=== PATIENT | female | born 1975 | race Two or more races ===

== ENCOUNTER 2020-04-10 11:10 | Outpatient (REF) | payer OTHER, SELFPAY ==
--- NOTE | ~2020-04-10 | XR_ITS ---
EXAMINATION: XR LUMBOSACRAL SPINE WITH OBLIQUES CLINICAL INFORMATION: Unspecified thoracic, thoracolumbar and lumbosacral intervertebral disc disorder COMPARISON: None TECHNIQUE: AP, both oblique, and lateral views of the lumbar spine. Lateral view of the lumbosacral junction. FINDINGS: There is loss of disc height with endplate sclerosis and prominent posterior osteophytosis at L5-S1. Minimal anterior osteophytosis. There is likely bilateral facet arthropathy at L5-S1 as well. Vertebral body heights are maintained. Normal sagittal alignment. Bilateral sacroiliac joint spaces are maintained. XR/XR lumbar spine 4V min IMPRESSION: Degenerative disc disease and facet arthropathy at L5-S1.
[2020-04-10 13:03] LABS: Hematocrit 39.1 % (37-47); Hemoglobin 12.2 g/dl (12.0-16.0); Mean Corpuscular HGB Conc 31.2 g/dl (31.0-35.0); Mean Corpuscular Volume 86.5 fL (80-98); Mean Platelet Volume 11.2 fL (9.4-12.3); Platelet Count 304 X10*3/uL (160-400); Red Blood Count 4.52 X10*6/uL (4.20-5.50); White Blood Count 8.6 X10*3/uL (4.8-10.8)
[2020-04-10 13:10] LABS: Estimated Average Glucose 97 mg/dL
[2020-04-10 13:30] LABS: Alanine Aminotransferase 23 U/L (0-31); Albumin Level 4.3 g/dL (3.5-5.0); Alkaline Phosphatase 65 U/L (39-117); Anion Gap 13 (12-20); Aspartate Amino Transferase 13 U/L (5-31); Bilirubin Total 0.5 mg/dL (0.0-1.0); Blood Urea Nitrogen 11 mg/dL (9-16); Calcium 8.9 mg/dL (8.4-10.2); Carbon Dioxide 26 mmol/L (22-29); Chloride 104 mmol/L (96-108); Cholesterol 191 mg/dL; Estimated Glomerular Filt Rate > 60; Glucose Fasting 96 mg/dL (60-99); HDL Cholesterol 42 mg/dL; LDL Cholesterol Calculated 125 mg/dl; Potassium 4.4 mmol/L (3.3-5.1); Sodium 139 mmol/L (135-145); Total Protein 7.2 g/dL (6.5-8.0); Triglycerides 120 mg/dL
[2020-04-10 13:52] LABS: TSH reflex Free T4 1.18 uIU/mL (0.32-4.0)
== END 2020-04-10 11:11 | disposition home or self-care (01) ==
LOC: HO.LAB 11:10
PROVIDERS: PCP Physician Assistant; Visit Provider Physician Assistant
DX: E78.2 Mixed hyperlipidemia (principal); I10 Essential (primary) hypertension; M51.9 Unspecified thoracic, thoracolumbar and lumbosacral intervertebral disc disorder; J45.30 Mild persistent asthma, uncomplicated; N63.20 Unspecified lump in the left breast, unspecified quadrant; N83.202 Unspecified ovarian cyst, left side; F33.1 Major depressive disorder, recurrent, moderate; Z13.220 Encounter for screening for lipoid disorders
CPT/HCPCS: 36415; 72110; 80053; 80061; 83036; 84443; 85027

== ENCOUNTER 2020-04-17 12:49 | Outpatient (REF) | payer OTHER, SELFPAY ==
--- NOTE | ~2020-04-17 | US_ITS ---
EXAMINATION: US THYROID CLINICAL INFORMATION: Nontoxic single thyroid nodule. COMPARISON: None. TECHNIQUE: Linear transducer echavarria-scale and color Doppler examination with attention to the region of the thyroid. FINDINGS: SIZE: Measurements of the thyroid lobes and nodules are given in sagittal, anteroposterior and transverse dimensions respectively. Right Thyroid Lobe: 4.5 x 1.4 x 1.5 cm, volume 4.9 mL. Parenchyma: The gland echotexture is homogeneous. Thyroid vascularity is normal. Left Thyroid Lobe: 4.3 x 1.4 x 1.5 cm, volume 4.7 mL. Parenchyma: The gland echotexture is homogeneous. Thyroid vascularity is normal. Isthmus: 0.4 cm in maximum AP dimension. Estimated total number of nodules greater than or equal to 1 cm: 0. Greenskeeper Laborer nodules are described as follows: 1. Location: Left mid pole. Size: 0.3 x 0.2 x 0.3 cm, volume 0.01 mL. Nodule characteristics: Composition: Solid (2). Echogenicity: Hyperechoic (1). Shape: Not taller than wide (0). Margins: Smooth (0). Echogenic Foci: None (0). ACR TI-RADS total points: 3 ACR TI-RADS category: 3 NODES: No lymphadenopathy is seen in the tissue surrounding the thyroid gland. US/US thyroid IMPRESSION: Solitary less than 1 cm left midpole nodule, benign. The rest of the thyroid ultrasound is unremarkable. ACR TI-RADS RECOMMENDATION REFERENCE: Ultrasound-guided fine-needle aspiration, followup ultrasound, no further follow up. * TR1 (0 point) and TR 2 (2 points): No FNA or follow up * TR3 (3 points): FNA if more than or equal to 2.5 cm in maximum dimension, followup ultrasound in 1, 3 and 5 years if 1.5 to 2.4 cm in maximum dimension. * TR4 (4-6 points): FNA if more than or equal to 1.5 cm in maximum dimension, followup ultrasound in 1, 2, 3 and 5 years if 1 to 1.4 cm in maximum dimension. * TR5 (more than or equal to 7 points): FNA if more than or equal to 1 cm in maximum dimension, followup ultrasound every year for 5 years if 0.5 to 0.9 cm in maximum dimension. * TR3, TR4 or TR5 nodules that are below the size threshold for follow up receive no follow up.
== END 2020-04-17 12:50 | disposition home or self-care (01) ==
LOC: HO.US 12:49
PROVIDERS: PCP Physician Assistant; Visit Provider Physician Assistant
DX: E04.1 Nontoxic single thyroid nodule (principal)
CPT/HCPCS: 76536

== ENCOUNTER → 2020-04-23 13:25 | Outpatient (BNVA) | payer OTHER, SELFPAY | PROVIDERS: PCP Physician Assistant; Visit Provider Obstetrics & Gynecology ==

== ENCOUNTER 2020-04-26 08:30 | Outpatient (REF) | payer OTHER, SELFPAY ==
--- NOTE | ~2020-04-26 | MM_ITS ---
EXAMINATION: MM DIAGNOSTIC DIGITAL BREAST TOMOSYNTHESIS, BILATERAL Targeted left breast ultrasound CLINICAL INFORMATION: Tender lump upper outer aspect of the left breast The lifetime risk of breast cancer based on the Tyrer-Cuzick Model is 7.6%. COMPARISON: Mammography: None TECHNIQUE: Digital breast tomosynthesis is performed in both the craniocaudal and mediolateral oblique views along with computer-aided detection (CAD). Synthesized 2D images are generated from the tomosynthesis. Targeted left breast ultrasound FINDINGS: The breasts are heterogeneously dense, which may obscure small masses (ACR BI-RADS breast composition Category c). There are no significant masses, abnormal calcifications, or other abnormalities. Targeted left breast ultrasound demonstrates a hypoechoic subcutaneous lesion without distal sound shadowing 1:00 position 4 cm from the nipple. No internal vascularity. No definite pore to skin is identified. The lesion measures approximately 3 x 2 mm in size. Results are discussed with the patient at time of visit. MM/MM tomosynthesis diagnostic BI IMPRESSION: Painful palpable area corresponds to a small 3 x 2 mm subcutaneous cyst. ASSESSMENT: BI-RADS 2: Benign RECOMMENDATION: Routine annual mammography screening due in 12 months. Clinical follow-up of palpable abnormality. This patient's information was entered into a reminder system with a target due date for their next mammogram.
--- NOTE | ~2020-04-26 | US_ITS ---
EXAMINATION: US DIAGNOSTIC ULTRASOUND BREAST, LEFT CLINICAL INFORMATION: Painful lump. COMPARISON: Mammography same day. TECHNIQUE: Ultrasound of the breast is performed with real-time echavarria scale imaging and color Doppler. FINDINGS: Targeted left breast ultrasound demonstrates a hypoechoic subcutaneous lesion without distal sound shadowing 1:00 position 4 cm from the nipple. No internal vascularity. No definite pore to skin is identified. The lesion measures approximately 3 x 2 mm in size. Results are discussed with the patient at time of visit. US/US breast LT limited IMPRESSION: Painful palpable area corresponds to a small 3 x 2 mm subcutaneous cyst. ASSESSMENT: BI-RADS 2: Benign RECOMMENDATION: Routine annual mammography screening due in 12 months. Clinical follow-up of palpable abnormality.
== END 2020-04-26 08:31 | disposition home or self-care (01) ==
LOC: HO.MAMMO 08:30
PROVIDERS: Visit Provider Obstetrics & Gynecology
DX: N60.02 Solitary cyst of left breast (principal); N64.4 Mastodynia; Z79.899 Other long term (current) drug therapy
CPT/HCPCS: 76642; 77062; 77066; 99202

== ENCOUNTER 2020-04-30 08:33 | Outpatient (REF) | payer OTHER, SELFPAY ==
--- NOTE | ~2020-04-30 | US_ITS ---
EXAMINATION: ULTRASOUND PELVIS COMPLETE. CLINICAL INFORMATION: Pelvic and perineal pain. History of hysterectomy. COMPARISON: None. TECHNIQUE: Transabdominal and transvaginal images of the pelvis are performed. FINDINGS: The uterus is surgically absent. Both ovaries are seen transabdominally. Right ovary measures 2.20 x 2.28 x 1.95 cm and volume 5.11 mL. It appears unremarkable. Left ovary measures 2.68 x 1.23 x 2.62 cm and volume 4.52 cm. There is no adnexal mass or free fluid. US/US pelvic complete IMPRESSION: Unremarkable ovaries. Uterus is surgically removed. There is no adnexal mass or free fluid.
--- NOTE | ~2020-04-30 | US_ITS ---
EXAMINATION: ULTRASOUND PELVIS COMPLETE. CLINICAL INFORMATION: Pelvic and perineal pain. History of hysterectomy. COMPARISON: None. TECHNIQUE: Transabdominal and transvaginal images of the pelvis are performed. FINDINGS: The uterus is surgically absent. Both ovaries are seen transabdominally. Right ovary measures 2.20 x 2.28 x 1.95 cm and volume 5.11 mL. It appears unremarkable. Left ovary measures 2.68 x 1.23 x 2.62 cm and volume 4.52 cm. There is no adnexal mass or free fluid. US/US transvaginal IMPRESSION: Unremarkable ovaries. Uterus is surgically removed. There is no adnexal mass or free fluid.
== END 2020-04-30 08:34 | disposition home or self-care (01) ==
LOC: HO.US 08:33
PROVIDERS: Visit Provider Obstetrics & Gynecology
DX: R10.2 Pelvic and perineal pain (principal); Z90.710 Acquired absence of both cervix and uterus
CPT/HCPCS: 76830; 76856

== ENCOUNTER → 2020-05-13 11:32 | Outpatient (BNVA) | payer OTHER, SELFPAY | PROVIDERS: PCP Physician Assistant; Visit Provider Obstetrics & Gynecology | DX: R10.2 Pelvic and perineal pain (principal); N63.20 Unspecified lump in the left breast, unspecified quadrant ==

== ENCOUNTER → 2020-05-14 07:58 | Outpatient (BNVA) | payer OTHER, SELFPAY | PROVIDERS: PCP Physician Assistant; Visit Provider Internal Medicine Endocrinology, Diabetes & Metabolism | DX: E04.1 Nontoxic single thyroid nodule (principal) | CPT/HCPCS: 99202 ==

== ENCOUNTER 2020-05-16 08:01 | Outpatient (REF) | payer OTHER, SELFPAY ==
--- NOTE | ~2020-05-16 | XR_ITS ---
EXAMINATION: XR WRIST, RIGHT CLINICAL INFORMATION: Pain in right wrist COMPARISON: None TECHNIQUE: Four views of the right wrist. FINDINGS: There is no fracture or dislocation. The carpal rows are well aligned. No osseous erosions. Joint spaces are maintained. The soft tissues are unremarkable. XR/XR wrist RT min 3V IMPRESSION: Unremarkable appearance of the right wrist.
[2020-05-16 09:53] LABS: Glucose Urine UA NEG (NEG); Leukocyte Esterase Urine NEG (NEG); Nitrite Urine NEG (NEG); PH 5.5 (5.0-8.0); Specific Gravity - Urine >= 1.030 (1.005-1.025); Urine Blood NEG (NEG); Urine Ketones NEG (NEG); Urine Protein NEG (NEG-TRACE)
[2020-05-16 09:56] LABS: Appearance Urine HAZY; Color Urine YELLOW
[2020-05-16 10:02] LABS: Free T4 (Free Thyroxine) 0.98 ng/dL (0.71-1.85); Thyroid Stimulating Hormone 1.55 uIU/mL (0.32-4.0)
[2020-05-17 07:02] LABS: Thyroglobulin Antibodies <1 IU/mL (< or = 1); Thyroid Peroxidase Antibodies <1 IU/mL (<9)
== END 2020-05-16 08:02 | disposition home or self-care (01) ==
LOC: HO.LAB 08:01
PROVIDERS: Absent Provider Obstetrics & Gynecology; PCP Physician Assistant; Visit Provider Internal Medicine Endocrinology, Diabetes & Metabolism
DX: R10.2 Pelvic and perineal pain (principal); M25.531 Pain in right wrist; E04.1 Nontoxic single thyroid nodule
CPT/HCPCS: 36415; 73110; 81003; 84439; 84443; 86376; 86800

== ENCOUNTER 2020-05-16 08:43 | Outpatient (REF) | payer OTHER, SELFPAY ==
[2020-05-16 12:40] LABS: SARS COV2 PCR INHOUSE NEGATIVE (Negative)
== END 2020-05-16 08:44 | disposition home or self-care (01) ==
LOC: HO.LAB 08:43
PROVIDERS: Visit Provider Internal Medicine
DX: Z20.822 Contact with and (suspected) exposure to COVID-19 (principal)
CPT/HCPCS: C9803; U0003

== ENCOUNTER 2020-06-24 13:56 | Outpatient (REF) | payer OTHER, SELFPAY | END 2020-06-24 13:57 | disposition home or self-care (01) | LOC: HO.LAB 13:56 | PROVIDERS: Visit Provider Internal Medicine | DX: Z20.822 Contact with and (suspected) exposure to COVID-19 (principal) | CPT/HCPCS: C9803; U0003; U0005 ==

== ENCOUNTER 2020-07-12 15:43 | Outpatient (REF) | payer OTHER, SELFPAY ==
--- NOTE | ~2020-07-12 | MR_ITS ---
MR LUMBAR SPINE WITHOUT CONTRAST CLINICAL INFORMATION: Radiculopathy. Suspect L5-S1 disc degeneration. COMPARISON: None available. TECHNIQUE: MRI of the lumbar spine was obtained using routine sequences without contrast. FINDINGS: There are 5 nonrib-bearing lumbar-type vertebral bodies. Lumbar alignment is normal. Vertebral body heights are maintained. There is moderate to severe disc volume loss at L5-S1 and the remaining disc volumes are preserved. Disc desiccation at L5-S1. The remaining discs are well-hydrated. Modic type II endplate signal changes at L5-S1. No bone marrow edema. No acute fractures. Intraosseous hemangioma within the L4 vertebral body. Conus terminates at the L1 level. No significant extraspinal soft tissue findings. The L1-L2, L2-L3, and L3-L4 disc contours are normal. There is no central canal stenosis and there is no foraminal stenosis L4-L5: Small annular disc bulge and mild bilateral facet arthropathy. No central canal stenosis and no significant foraminal stenosis. L5-S1: There is a superiorly migrating right paracentral disc extrusion that mildly indents the ventral thecal sac without resulting in mass effect on the traversing S1 nerve roots. Disc osteophyte and facet arthropathy result in moderate bilateral foraminal stenosis with mild mass effect on the exiting L5 nerve roots bilaterally. MR/MR lumbar spine wo con IMPRESSION: At L5-S1, there is a superiorly migrating right paracentral disc extrusion that mildly indents the ventral thecal sac without resulting in mass effect on the traversing S1 nerve roots. Multifactorial degenerative changes at L5-S1 result in moderate bilateral foraminal stenosis with mild mass effect on the exiting L5 nerve roots bilaterally. Moderate to severe disc volume loss at L5-S1.
== END 2020-07-12 15:44 | disposition home or self-care (01) ==
LOC: HO.MRI 15:43
PROVIDERS: Visit Provider Physical Medicine & Rehabilitation
DX: M54.16 Radiculopathy, lumbar region (principal); M51.37 Other intervertebral disc degeneration, lumbosacral region
CPT/HCPCS: 72148

== ENCOUNTER → 2020-12-04 10:57 | Outpatient (BNVA) | payer OTHER, SELFPAY | PROVIDERS: PCP Nurse Practitioner Family; Visit Provider Orthopaedic Surgery | DX: R20.0 Anesthesia of skin (principal); R20.2 Paresthesia of skin | CPT/HCPCS: 99202 ==

== ENCOUNTER 2021-02-06 08:06 | Outpatient (REF) | payer OTHER, SELFPAY ==
[2021-02-06 09:02] LABS: Estimated Average Glucose 103 mg/dL; Hemoglobin A1c % 5.2 %
[2021-02-06 09:16] LABS: Alanine Aminotransferase 32 U/L (0-31); Alkaline Phosphatase 68 U/L (39-117); Anion Gap 11 (12-20); Aspartate Amino Transferase 14 U/L (5-31); Bilirubin Total 0.7 mg/dL (0.0-1.0); Blood Urea Nitrogen 11 mg/dL (9-16); Calcium 9.6 mg/dL (8.4-10.2); Carbon Dioxide 28 mmol/L (22-29); Chloride 105 mmol/L (96-108); Cholesterol 208 mg/dL; Estimated Glomerular Filt Rate > 60; Glucose Fasting 104 mg/dL (60-99); HDL Cholesterol 44 mg/dL; LDL Cholesterol Calculated 142 mg/dl; Potassium 4.3 mmol/L (3.3-5.1); Sodium 140 mmol/L (135-145); Total Protein 6.8 g/dL (6.5-8.0); Triglycerides 110 mg/dL
[2021-02-06 09:38] LABS: Creatinine Urine 175.83 mg/dL; Microalbum/Creatinine Ratio Ur 3.9 ug/mg cr
== END 2021-02-06 08:07 | disposition home or self-care (01) ==
LOC: HO.LAB 08:06
PROVIDERS: PCP Physician Assistant; Visit Provider Physician Assistant
DX: I10 Essential (primary) hypertension (principal)
CPT/HCPCS: 36415; 80053; 80061; 82043; 83036

== ENCOUNTER 2021-03-10 09:29 | Outpatient (REF) | payer OTHER, SELFPAY ==
--- NOTE | ~2021-03-10 | US_ITS ---
EXAMINATION: US ABDOMEN COMPLETE CLINICAL INFORMATION: Abdominal distention (gaseous). COMPARISON: None. TECHNIQUE: Real-time imaging of the abdominal viscera. FINDINGS: PANCREAS: Normal. ABDOMINAL AORTA: The proximal, mid, and distal segments are normal in caliber. INFERIOR VENA CAVA: Visualized portions are normal. LIVER: The liver is normal in size. The liver contour is normal. There is increased liver echogenicity. No focal hepatic lesion. There is no intrahepatic biliary duct dilatation seen. GALLBLADDER: Gallbladder wall thickness measures 0.2 cm. The gallbladder is physiologically distended without evidence of stones, sludge, polyps, wall thickening or pericholecystic fluid. COMMON BILE DUCT: Normal in caliber measuring 0.4 cm in diameter. RIGHT KIDNEY: No hydronephrosis. However, there is mild pelvic fullness. No renal calculi or focal parenchymal lesions. The kidney measures 11.0 cm in maximum dimension. LEFT KIDNEY: There are calcified echogenic vessels in the upper pole. No hydronephrosis. No renal calculi or focal parenchymal lesions. The kidney measures 10.2 cm in maximum dimension. SPLEEN: Normal. The spleen measures 8.4 cm in maximum dimension. FREE FLUID: None. US/US abdomen complete IMPRESSION: Hepatic steatosis without focal lesion. No gallstones or wall thickening. Mild pelvic fullness right kidney.
--- NOTE | ~2021-03-10 | XR_ITS ---
EXAMINATION: XR CHEST CLINICAL INFORMATION: Mild persistent asthma. COMPARISON: None TECHNIQUE: 2 views of the chest were obtained. FINDINGS: The lungs are clear. There are no pleural effusions. The heart and mediastinal structures are unremarkable. XR/XR chest 2V IMPRESSION: No acute cardiopulmonary process.
== END 2021-03-10 09:30 | disposition home or self-care (01) ==
LOC: HO.US 09:29
PROVIDERS: Visit Provider Physician Assistant
DX: R14.0 Abdominal distension (gaseous) (principal); J45.30 Mild persistent asthma, uncomplicated
CPT/HCPCS: 71046; 76700

== ENCOUNTER 2021-05-07 10:51 | Outpatient (REF) | payer OTHER, SELFPAY ==
--- NOTE | ~2021-05-07 | US_ITS ---
EXAMINATION: US THYROID CLINICAL INFORMATION: Goiter. COMPARISON: US thyroid 04/17/2020. TECHNIQUE: Linear transducer grayscale and color Doppler examination with attention to the region of the thyroid. FINDINGS: SIZE: Measurements of the thyroid lobes and nodules are given in sagittal, anteroposterior and transverse dimensions respectively. Right Thyroid Lobe: 4.4 x 1.4 x 1.6 cm, volume 5.2 mL. Previously 4.5 x 1.4 x 1.5 cm, volume 4.9 mL. Parenchyma: The gland echotexture is homogeneous. Thyroid vascularity is normal. Left Thyroid Lobe: 4.2 x 1.2 x 1.5 cm, volume 3.9 mL. Previously 4.3 x 1.4 x 1.5 cm, volume 4.7 mL. Parenchyma: The gland echotexture is homogeneous. Thyroid vascularity is normal. Isthmus: 0.3 cm in maximum AP dimension. Previously 0.4 cm. Estimated total number of nodules greater than or equal to 1 cm: 0. Direct Service Worker nodules are described as follows: 1. Location: Left mid. Size: 0.35 x 0.16 x 0.27 cm, volume 0.01 mL. Previously: 0.3 x 0.2 x 0.3 cm, volume 0.01 mL. Nodule characteristics: Composition: Solid (2). Echogenicity: Hyperechoic (1). Shape: Not taller than wide (0). Margins: Smooth (0). Echogenic Foci: None (0). ACR TI-RADS total points: 3 Previous: 3 ACR TI-RADS category: 3 Previous: 3 Significant change in size (>/= 20% in 2 dimensions and minimal increase of 2 mm or 50% or greater increase in volume): Change in features: Change in ACR TI-RADS risk category: NODES: No lymphadenopathy is seen in the tissue surrounding the thyroid gland. US/US thyroid IMPRESSION: Normal size thyroid gland. Stable small solitary left thyroid nodule. ACR TI-RADS RECOMMENDATION REFERENCE: Ultrasound-guided fine-needle aspiration, followup ultrasound, no further follow up. * TR1 (0 point) and TR 2 (2 points): No FNA or follow up * TR3 (3 points): FNA if more than or equal to 2.5 cm in maximum dimension, followup ultrasound in 1, 3 and 5 years if 1.5 to 2.4 cm in maximum dimension. * TR4 (4-6 points): FNA if more than or equal to 1.5 cm in maximum dimension, followup ultrasound in 1, 2, 3 and 5 years if 1 to 1.4 cm in maximum dimension. * TR5 (more than or equal to 7 points): FNA if more than or equal to 1 cm in maximum dimension, followup ultrasound every year for 5 years if 0.5 to 0.9 cm in maximum dimension. * TR3, TR4 or TR5 nodules that are below the size threshold for follow up receive no follow up.
== END 2021-05-07 10:52 | disposition home or self-care (01) ==
LOC: HO.US 10:51
PROVIDERS: Visit Provider Internal Medicine Endocrinology, Diabetes & Metabolism
DX: E04.2 Nontoxic multinodular goiter (principal)
CPT/HCPCS: 76536

== ENCOUNTER 2021-05-16 08:19 | Outpatient (REF) | payer OTHER, SELFPAY ==
--- NOTE | 2021-05-16 08:25 | ECG_ITS ---
Test Reason : SOB Blood Pressure : / mmHG Vent. Rate : 070 BPM Atrial Rate : 070 BPM P-R Int : 140 ms QRS Dur : 086 ms QT Int : 388 ms P-R-T Axes : 034 034 028 degrees QTc Int : 419 ms Normal sinus rhythm Normal ECG No previous ECGs available Referred By: Reynaldo Santana Electronically Signed By:ALPA PAN
[2021-05-16 09:16] LABS: Hematocrit 39.8 % (37.0-47.0); Mean Corpuscular HGB Conc 30.2 g/dl (31.0-35.0); Mean Corpuscular Hemoglobin 26.4 pg (27.0-33.0); Mean Corpuscular Volume 87.7 fL (80.0-98.0); Mean Platelet Volume 10.8 fL (9.4-12.3); Platelet Count 318 X10*3/uL (160-400); Red Blood Count 4.54 X10*6/uL (4.20-5.50); White Blood Count 9.2 X10*3/uL (4.8-10.8)
[2021-05-16 09:32] LABS: Estimated Average Glucose 97 mg/dL
[2021-05-16 09:52] LABS: Anion Gap 9 (12-20); Blood Urea Nitrogen 11 mg/dL (9-16); Calcium 9.3 mg/dL (8.4-10.2); Carbon Dioxide 29 mmol/L (22-29); Chloride 106 mmol/L (96-108); Cholesterol 202 mg/dL; Estimated Glomerular Filt Rate > 60; Glucose Random 100 mg/dL (60-115); HDL Cholesterol 41 mg/dL; LDL Cholesterol Calculated 137 mg/dl; Potassium 4.2 mmol/L (3.3-5.1); Sodium 140 mmol/L (135-145); Triglycerides 121 mg/dL
[2021-05-16 10:01] LABS: Free T4 (Free Thyroxine) 1.09 ng/dL (0.71-1.85); Thyroid Stimulating Hormone 1.59 uIU/mL (0.32-4.0)
== END 2021-05-16 08:20 | disposition home or self-care (01) ==
LOC: HO.LAB 08:19
PROVIDERS: Absent Provider Internal Medicine Endocrinology, Diabetes & Metabolism; PCP Physician Assistant; Visit Provider Physician Assistant
DX: R06.02 Shortness of breath (principal); R55 Syncope and collapse; E04.1 Nontoxic single thyroid nodule; I10 Essential (primary) hypertension
CPT/HCPCS: 36415; 80048; 80061; 83036; 84439; 84443; 85027; 93005

== ENCOUNTER → 2021-05-26 10:58 | Outpatient (BNVA) | payer OTHER, SELFPAY | PROVIDERS: PCP Physician Assistant; Visit Provider Internal Medicine Endocrinology, Diabetes & Metabolism | DX: E04.1 Nontoxic single thyroid nodule (principal) | CPT/HCPCS: 99212 ==

== ENCOUNTER 2021-05-26 11:48 | Emergency (ER) | payer OTHER, SELFPAY ==
--- NOTE | 2021-05-26 | ECG_ITS ---
Test Reason : CP Blood Pressure : / mmHG Vent. Rate : 082 BPM Atrial Rate : 082 BPM P-R Int : 138 ms QRS Dur : 084 ms QT Int : 390 ms P-R-T Axes : 064 023 030 degrees QTc Int : 455 ms Normal sinus rhythm Normal ECG When compared with ECG of 16-MAY-2021 08:32, No significant change was found Referred By: Generic ED Physician Electronically Signed By:Ryan Huizar
--- NOTE | ~2021-05-26 | CT_ITS ---
EXAMINATION: CT HEAD WITHOUT CONTRAST CLINICAL INFORMATION: Dizziness. Headache. COMPARISON: None TECHNIQUE: Contiguous axial imaging was performed from the skull base to vertex without intravenous administration of contrast. This CT examination was performed using dose optimization techniques as appropriate, variously including the following: *Automated exposure control *Adjustment of mA and/or kV according to patient size (this includes techniques or standardized protocols for targeted exams where dose is matched to indication/reason for exam; i.e. extremities or head) *Use of iterative reconstruction technique DLP: 726 mGy-cm FINDINGS: There is no evidence of acute intracranial hemorrhage or territorial infarction. No abnormal mass effect or midline shift is seen. Strickland to white matter differentiation is well preserved. No extra-axial fluid collections are identified. The ventricles are normal in size. There is no abnormal attenuation within the brain parenchyma. The osseous structures and soft tissues are normal. The mastoid air cells and visualized portions of the paranasal sinuses are well aerated. CT/CT head/brain wo con IMPRESSION: Unremarkable exam.
--- NOTE | ~2021-05-26 | XR_ITS ---
EXAMINATION: XR CHEST CLINICAL INFORMATION: Cough and chest pain COMPARISON: Previous chest x-ray February 2021 TECHNIQUE: Frontal view of the chest was obtained. FINDINGS: No significant abnormality is noted involving the heart, lungs, mediastinum, bony thorax or soft tissues. XR/XR chest 1V IMPRESSION: Unremarkable examination.
[2021-05-26 12:25] VITALS: BP 168/79; PULSE 90; RESP 18; TEMP 36.2; O2SAT 97; BMI 26.6
[2021-05-26 14:53] LABS: Influenza A Negative (Negative); Influenza B2 Negative (Negative)
--- NOTE | 2021-05-26 15:27 | ED_ITS ---
HPI - General Adult General Chief complaint: Upper Respiratory Symptoms Stated complaint: Cant eat, coughing, chest pain, headache Time Seen by Provider: 05/26/21 14:59 Source: patient Mode of arrival: ambulatory Limitations: language barrier (tanzanian speaking phlebotomist medical lab assistant utilized) History of Present Illness HPI narrative: Patient presents to the emergency department with multiple complaints. Hold her symptoms have been ongoing for 3-4 months. She is being followed by her primary care provider for all of her symptoms. She denies any new symptoms overall, but reports that today she felt more head pressure and chest pressure therefore she presented to the emergency department. She has been experiencing persistent cough that is intermittently productive, and subsequently causes her to vomit was times if she eats or drinks. She is having significant abdominal bloating/pressure, reports that she had an ultrasound performed which revealed inflammation in her colon. She is having intermittent chest pressure which she is currently experiencing. She also has head pressure, that gets so bad that she feels as though she is going to pass out if she does not sit down, but denies actual episode of loss of consciousness. Her throat has been persistently itching with duration of this time also. Related Data Home Medications Medication Instructions Recorded Confirmed citalopram 20 mg tablet 20 mg PO DAILY 05/13/21 05/26/21 trazodone 50 mg tablet 50 mg PO BEDTIME 05/13/21 05/26/21 Previous Rx's Medication Instructions Recorded docusate sodium 100 mg capsule 100 mg PO DAILY 30 Days #30 cap 05/08/20 (Colace) miscellaneous medical supply #1 ea 05/08/20 (Blood Pressure Cuff) lidocaine 5 % topical patch 1 patch TOPICAL DAILY 15 Days #15 08/07/20 ea miscellaneous medical supply 1 ea MISCELLANEOUS DAILY 99 Days 08/07/20 #1 ea albuterol sulfate 90 mcg/actuation 2 puff PO Q4H PRN #8.5 g 09/18/20 aerosol inhaler (ProAir HFA) fluticasone propionate 110 1 puff PO BID #12 g 09/18/20 mcg/actuation HFA aerosol inhaler (Flovent HFA) albuterol sulfate 2.5 mg (3 mL) INHALATION Q4-6H PRN 12/11/20 30 Days #90 ml benzonatate 200 mg capsule 200 mg PO TID 7 Days #21 cap 02/10/21 atorvastatin 10 mg tablet 10 mg PO DAILY #30 tab 03/13/21 cetirizine 10 mg tablet 10 mg PO DAILY #30 tab 03/13/21 famotidine 20 mg tablet 20 mg PO DAILY #30 tab 03/13/21 lisinopril 20 1 tab PO DAILY 30 Days #30 tab 03/13/21 mg-hydrochlorothiazide 12.5 mg tablet naproxen 500 mg tablet 500 mg PO BID #60 tab 03/13/21 amlodipine 10 mg tablet 10 mg PO DAILY 30 Days #30 tab 05/13/21 gabapentin 100 mg capsule 100 mg PO TID 30 Days #90 cap 05/13/21 Allergies Allergy/AdvReac Type Severity Reaction Status Date / Time No Known Allergies Allergy Verified 05/26/21 11:07 Review of Systems Constitutional: Constitutional: Reports headache(s), Reports lethargy and Reports poor appetite Eyes: Eyes: Reports no additional eye complaints ENT: Reports dizziness, Reports headache(s) and Reports sore throat Cardiovascular: Cardiovascular: Reports chest pain (Pressure) and Reports lightheadedness Respiratory: Respiratory: Reports cough and Reports excessive phlegm production Gastrointestinal: Gastrointestinal: Reports abdominal pain (Bloating and pressure) and Reports vomiting (Reportedly secondary to coughing) Genitourinary: Genitourinary: Reports no additional female genitourinary complaints Musculoskeletal: Musculoskeletal: Reports no additional musculoskeletal complaints Integumentary/Breasts: Skin/Breast: Reports system reviewed and no additional complaints, except as docu Neurologic: Reports dizziness and Reports headache(s) Psychiatric: Psychiatric: Reports change in appetite Endocrine: Endocrine: Reports no additional endocrine complaints Hematologic/Lymphatic: Hematologic/Lymphatic: Reports no additional hematol ogic/lymphatic complaints Allergic/Immunologic: Allergic/Immunologic: Reports no additional allergic/immunologic complaints [facility] Past Medical History Attestation statement: The following information was validated with the patient. 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 Blood pressure elevated 168/79, improved to 134/57 after pain relief. Heart rate normal.? Respiration rate normal. Temperature normal.? Oxygen saturation normal. Appearance: Alert.?Oriented to person, place and time. No acute distress.?Normal affect. Tearful. Head: Normocephalic, atraumatic. No head, sinus or TMJ tenderness.? Eyes: Sclera white, conjunctiva pink. PERRL, 3 mm bilaterally. Visual raman full to confrontation, EOMi.?No Nystagmus. Ears: Bilateral ear canals clear, TM visible with good cone of light.? Nose: Nasal mucosa pink and moist with midline septum, nares patent bilaterally.? Mouth/ Throat: Oral mucosa pink and moist without lesions. Pharynx without exudate, tonsils symmetric, no adenopathy.? Neck: Normal inspection.? Neck supple.?? CVS: Heart sounds normal. Normal heart rate and rhythm.? Pulses normal.?? Respiratory: No respiratory distress.? Lung sounds clear to auscultation bilaterally?? Abdomen: Soft and non-tender. Normoactive bowel sounds. ? Skin: Skin warm and dry.? Normal skin color.? ? Extremities: No lower extremity edema.? Neuro: Moves all extremities spontaneously. Sensation intact bilaterally. CN II- XII intact. No focal neuro deficits. Ambulates with normal steady gait. Course Course Course Narrative: Patient is a 46-year-old female with a past medical history of asthma, HTN, lumbar disc disease, MDD, GERD, Migraines. She presents to the emergency department with multiple symptoms all which have been present for 3-4 month. The only acute difference being that she is having worsening of her head pressure/headache since this morning, given persistent intractable headache will obtain CT to exclude ICH/SAH/mass. History and physical exam not consistent with GI perforation, GI bleed, AAA, aortic dissection, ectopic , DKA. Not consistent with strangulated hernia, bowel obstruction, pulmonary embolism, mesenteric ischemia. No adenopathy or tonsillar hypertropgy, no current concern for bactereial pharyngitis, has been persistent for months, likely secondary to irritation from cough and vomiting. Will obtain CBC to evaluate for leukocytosis/ anemia, CMP to evaluate for abnormal electrolytes /abnormal renal function/ abnormal hepatic function, EKG and troponin to evaluate for ischemia/ACS. Chest x-ray to evaluate for consolidation/ infiltrate/ mass/ pulmonary congestion. This to evaluate for infection and , COVID- 19 and influenza testing. Given her major is worsening her headache will medicaate with NS 1L IVF, Reglan IV, Toradol IV, Benadryl IV. Reevaluation(s) Reevaluation #1: COVID-10 and Influenza Testing is negative. Chest x-ray is normal. CT of the head is unremarkable. Urinalysis without concern for infection. CBC is overall unremarkable and mild leukocytosis of 13.0, CMP is normal. Troponin is 4.5, EKG with no acute concerns for ischemia, symptoms persistent for greater than 24 hour period, unlikely to be ACS. Patient reports significant improvement in her headache very soon after receiving medications. She feels significantly better at this time, and comfortable with plan of care for discharge home, discussed reasons to return back to the emergency department, advised follow-up with primary care provider, all questions answered. Medical Decision Making Medical Records Medical records reviewed: Yes I reviewed the patient's medical records. Lab Data Lab results reviewed: Yes I reviewed the patient's lab results. Result diagrams: 05/26/21 15:52 05/26/21 15:52 Labs: Lab Results 05/26/21 05/26/21 05/26/21 Range/Units 14:25 15:52 15:52 WBC 13.0 H (4.8-10.8) X10*3/uL RBC 4.88 (4.20-5.50) X10*6/uL Hgb 13.1 (12.0-16.0) g/dl Hct 41.9 (37.0-47.0) % MCV 85.9 (80.0-98.0) fL MCH 26.8 L (27.0-33.0) pg MCHC 31.3 (31.0-35.0) g/dl RDW 12.9 (11.0-16.0) % Plt Count 336 (160-400) X10*3/uL MPV 10.8 (9.4-12.3) fL Immature Gran % (Auto) 0.3 (0.0-0.4) % Neut % (Auto) 71.1 (45-73) % Lymph % (Auto) 20.3 (20-40) % [place] % (Auto) 5.3 (2-11) % Eos % (Auto) 2.7 (0-4) % Baso % (Auto) 0.3 (0-2) % Lymph # (Auto) 2.6 (1.2-4.9) X10*3/uL [place] # (Auto) 0.7 (0.1-1.2) X10*3/uL Eos # (Auto) 0.4 (0.0-0.4) X10*3/uL Baso # (Auto) 0.0 (0.0-0.2) X10*3/uL Abs Immat Gran (auto) 0.04 H (0.00-0.03) X10*3/uL Absolute Neuts (auto) 9.3 H (2.0-8.3) x10*3/uL Absolute Nucleated RBC 0.000 (0.0-0.012) X10*3/uL Nucleated RBC % (auto) 0.0 (0.0-0.2) /100WBC Sodium (135-145) mmol/L Potassium (3.3-5.1) mmol/L Chloride (96-108) mmol/L Carbon Dioxide (22-29) mmol/L Anion Gap (12-20) BUN (9-16) mg/dL Creatinine (0.5-1.4) mg/dL Estim Creat Clear Calc Estimated GFR Random Glucose (60-115) mg/dL Calcium (8.4-10.2) mg/dL Total Bilirubin (0.0-1.0) mg/dL AST (5-31) U/L ALT (0-31) U/L Alkaline Phosphatase (39-117) U/L Troponin I High Sens (<3.5-17.0) ng/L Total Protein (6.5-8.0) g/dL Albumin (3.5-5.0) g/dL Urine Color Urine Appearance Urine pH (5.0-8.0) Ur Specific [place] (1.005-1.025) Urine Protein (NEG-TRACE) MG/DL Urine Glucose (UA) (NEG) MG/DL Urine Ketones (NEG) MG/DL Urine Blood (NEG) Urine Nitrite (NEG) Ur Leukocyte Esterase (NEG) Urine Test (NEGATIVE) COVID-19 (AGNIESZKA) Negative (Negative) COVID-19 Clin Com See Note Influenza Type A (JUAN) Negative (Negative) Influenza Type B (JUAN) Negative (Negative) Influenza A & B Note See Note 05/26/21 05/26/21 05/26/21 Range/Units 15:52 15:52 16:11 WBC (4.8-10.8) X10*3/uL RBC (4.20-5.50) X10*6/uL Hgb (12.0-16.0) g/dl Hct (37.0-47.0) % MCV (80.0-98.0) fL MCH (27.0-33.0) pg MCHC (31.0-35.0) g/dl RDW (11.0-16.0) % Plt Count (160-400) X10*3/uL MPV (9.4-12.3) fL Immature Gran % (Auto) (0.0-0.4) % Neut % (Auto) (45-73) % Lymph % (Auto) (20-40) % [place] % (Auto) (2-11) % Eos % (Auto) (0-4) % Baso % (Auto) (0-2) % Lymph # (Auto) (1.2-4.9) X10*3/uL [place] # (Auto) (0.1-1.2) X10*3/uL Eos # (Auto) (0.0-0.4) X10*3/uL Baso # (Auto) (0.0-0.2) X10*3/uL Abs Immat Gran (auto) (0.00-0.03) X10*3/uL Absolute Neuts (auto) (2.0-8.3) x10*3/uL Absolute Nucleated RBC (0.0-0.012) X10*3/uL Nucleated RBC % (auto) (0.0-0.2) /100WBC Sodium 138 (135-145) mmol/L Potassium 4.0 (3.3-5.1) mmol/L Chloride 103 (96-108) mmol/L Carbon Dioxide 26 (22-29) mmol/L Anion Gap 13 (12-20) BUN 9 (9-16) mg/dL Creatinine 0.78 (0.5-1.4) mg/dL Estim Creat Clear Calc 86.7 Estimated GFR > 60 Random Glucose 91 (60-115) mg/dL Calcium 9.9 D (8.4-10.2) mg/dL Total Bilirubin 0.4 (0.0-1.0) mg/dL AST 17 (5-31) U/L ALT 25 (0-31) U/L Alkaline Phosphatase 73 (39-117) U/L Troponin I High Sens 4.5 (<3.5-17.0) ng/L Total Protein 7.8 (6.5-8.0) g/dL Albumin 4.6 (3.5-5.0) g/dL Urine Color YELLOW Urine Appearance CLEAR Urine pH 5.5 (5.0-8.0) Ur Specific [place] >= 1.030 H (1.005-1.025) Urine Protein NEG (NEG-TRACE) MG/DL Urine Glucose (UA) NEG (NEG) MG/DL Urine Ketones NEG (NEG) MG/DL Urine Blood NEG (NEG) Urine Nitrite NEG (NEG) Ur Leukocyte Esterase NEG (NEG) Urine Test (NEGATIVE) COVID-19 (AGNIESZKA) (Negative) COVID-19 Clin Com Influenza Type A (JUAN) (Negative) Influenza Type B (JUAN) (Negative) Influenza A & B Note 05/26/21 Range/Units 16:11 WBC (4.8-10.8) X10*3/uL RBC (4.20-5.50) X10*6/uL Hgb (12.0-16.0) g/dl Hct (37.0-47.0) % MCV (80.0-98.0) fL MCH (27.0-33.0) pg MCHC (31.0-35.0) g/dl RDW (11.0-16.0) % Plt Count (160-400) X10*3/uL MPV (9.4-12.3) fL Immature Gran % (Auto) (0.0-0.4) % Neut % (Auto) (45-73) % Lymph % (Auto) (20-40) % [place] % (Auto) (2-11) % Eos % (Auto) (0-4) % Baso % (Auto) (0-2) % Lymph # (Auto) (1.2-4.9) X10*3/uL [place] # (Auto) (0.1-1.2) X10*3/uL Eos # (Auto) (0.0-0.4) X10*3/uL Baso # (Auto) (0.0-0.2) X10*3/uL Abs Immat Gran (auto) (0.00-0.03) X10*3/uL Absolute Neuts (auto) (2.0-8.3) x10*3/uL Absolute Nucleated RBC (0.0-0.012) X10*3/uL Nucleated RBC % (auto) (0.0-0.2) /100WBC Sodium (135-145) mmol/L Potassium (3.3-5.1) mmol/L Chloride (96-108) mmol/L Carbon Dioxide (22-29) mmol/L Anion Gap (12-20) BUN (9-16) mg/dL Creatinine (0.5-1.4) mg/dL Estim Creat Clear Calc Estimated GFR Random Glucose (60-115) mg/dL Calcium (8.4-10.2) mg/dL Total Bilirubin (0.0-1.0) mg/dL AST (5-31) U/L ALT (0-31) U/L Alkaline Phosphatase (39-117) U/L Troponin I High Sens (<3.5-17.0) ng/L Total Protein (6.5-8.0) g/dL Albumin (3.5-5.0) g/dL Urine Color Urine Appearance Urine pH (5.0-8.0) Ur Specific [place] (1.005-1.025) Urine Protein (NEG-TRACE) MG/DL Urine Glucose (UA) (NEG) MG/DL Urine Ketones (NEG) MG/DL Urine Blood (NEG) Urine Nitrite (NEG) Ur Leukocyte Esterase (NEG) Urine Test NEGATIVE (NEGATIVE) COVID-19 (AGNIESZKA) (Negative) COVID-19 Clin Com Influenza Type A (JUAN) (Negative) Influenza Type B (JUAN) (Negative) Influenza A & B Note Imaging Data Chest x-ray: Radiologist's impression: XR/XR chest 1V IMPRESSION: Unremarkable examination. CT scan - head: Radiologist's impression: FINDINGS: There is no evidence of acute intracranial hemorrhage or territorial infarction. No abnormal mass effect or midline shift is seen. Strickland to white matter differentiation is well preserved. No extra-axial fluid collections are identified. The ventricles are normal in size. There is no abnormal attenuation within the brain parenchyma. The osseous structures and soft tissues are normal. The mastoid air cells and visualized portions of the paranasal sinuses are well aerated. ? CT/CT head/brain wo con IMPRESSION: Unremarkable exam. ECG Data Attestation: I personally reviewed and interpreted this ECG as follows: Prior ECG tracings: available for review Interpretation: Rate: 82 Rhythm:? Normal sinus rhythm [place]:? Normal Normal P waves.? Normal MIKAL.?? Normal QRS complex.?? ST T wave :??Elevation qTC: 455 prior studies:?05/16/2021 The study has been interpreted contemporaneously by me. Discharge Plan Discharge Clinical Impression: Headache, Abdominal bloating, Atypical chest pain Patient Disposition: Home, Self-Care Instructions: Chest Pain (ED), Acute Headache (ED), Acute Abdominal Pain (ED), Gas and Bloating (ED), Noncardiac Chest Pain (ED) Additional Instructions: Please contact your primary care provider to schedule a follow-up visit within 1 week, for further management of your symptoms that have been ongoing over the past 4 months. You may return to the emergency department with any new or worsening symptoms or concerns. You may use naproxen and Tylenol or Excedrin for headaches. Prescriptions: No Action albuterol sulfate [ProAir HFA] 90 mcg/actuation HFA aerosol inhaler 2 puff PO Q4H PRN (Reason: for wheezing) Qty: 8.5 3RF Flovent HFA 110 mcg/actuation HFA aerosol inhaler 1 puff PO BID Qty: 12 3RF albuterol sulfate 2.5 mg /3 mL (0.083 %) solution for nebulization 2.5 mg inhalation Q4-6H PRN (Reason: shortness of breath or wheezing) 30 Days Qty: 90 3RF naproxen 500 mg tablet 500 mg PO BID Qty: 60 3RF famotidine 20 mg tablet 20 mg PO DAILY Qty: 30 3RF cetirizine 10 mg tablet 10 mg PO DAILY Qty: 30 3RF atorvastatin 10 mg tablet 10 mg PO DAILY Qty: 30 3RF lisinopril-hydrochlorothiazide 20-12.5 mg tablet 1 tab PO DAILY 30 Days Qty: 30 3RF Hold Instructions: Doctor's Order (DME) Blood Pressure Cuff Misc See Rx Instructions .ROUTE .MEDSUPPLY Qty: 1 0RF Rx Instructions: As directed docusate sodium [Colace] 100 mg capsule 100 mg PO DAILY 30 Days Qty: 30 1RF miscellaneous medical supply Misc 1 ea miscellaneous DAILY 99 Days Qty: 1 0RF lidocaine 5 % adhesive patch,medicated 1 patch topical DAILY 15 Days Qty: 15 0RF Rx Instructions: leave on most painful area for up to 12 hrs gabapentin 100 mg capsule 100 mg PO TID 30 Days Qty: 90 1RF amlodipine 10 mg tablet 10 mg PO DAILY 30 Days Qty: 30 1RF citalopram 20 mg tablet 20 mg PO DAILY 0RF trazodone 50 mg tablet 50 mg PO BEDTIME 0RF benzonatate 200 mg capsule 200 mg PO TID 7 Days Qty: 21 0RF Interventions: ED Discharge Assessment Last Done: 05/26/21 17:25 Discharge Date/Time: 05/26/21 17:27
[2021-05-26 16:00] LABS: MANUAL DIFF FLAG NO
[2021-05-26 16:03] LABS: Basophils Percent Auto 0.3 % (0-2); Eosinophils Absolute Auto 0.4 X10*3/uL (0.0-0.4); Eosinophils Percent Auto 2.7 % (0-4); Hematocrit 41.9 % (37.0-47.0); Hemoglobin 13.1 g/dl (12.0-16.0); Imm Gran Abs Auto 0.04 X10*3/uL (0.00-0.03); Imm Gran Pct Auto 0.3 % (0.0-0.4); Lymphocytes Absolute Auto 2.6 X10*3/uL (1.2-4.9); Lymphocytes Percent Auto 20.3 % (20-40); Mean Corpuscular HGB Conc 31.3 g/dl (31.0-35.0); Mean Corpuscular Hemoglobin 26.8 pg (27.0-33.0); Mean Corpuscular Volume 85.9 fL (80.0-98.0); Mean Platelet Volume 10.8 fL (9.4-12.3); Monocytes Absolute Auto 0.7 X10*3/uL (0.1-1.2); Monocytes Percent Auto 5.3 % (2-11); Neutrophils Absolute Auto 9.3 x10*3/uL (2.0-8.3); Neutrophils Percent Auto 71.1 % (45-73); Platelet Count 336 X10*3/uL (160-400); Red Blood Count 4.88 X10*6/uL (4.20-5.50); Red Cell Distribution Width 12.9 % (11.0-16.0)
[2021-05-26] MEDS: 0.9 % Sodium Chloride 1,000 ML 999 ML IV (16:05)
[2021-05-26] MEDS: Ketorolac Tromethamine 30 MG/ML VIAL IVPUSH (16:06)
[2021-05-26] MEDS: Metoclopramide HCl 10 MG/2 ML VIAL IVPUSH (16:07)
[2021-05-26] MEDS: diphenhydrAMINE HCL 50 MG/ML VIAL 25 MG IVPUSH (16:07)
[2021-05-26 16:18] LABS: COVID-19 Test Negative (Negative); IDNOW Serial# 55D5AD1C
[2021-05-26 16:23] LABS: Alanine Aminotransferase 25 U/L (0-31); Albumin Level 4.6 g/dL (3.5-5.0); Alkaline Phosphatase 73 U/L (39-117); Anion Gap 13 (12-20); Aspartate Amino Transferase 17 U/L (5-31); Bilirubin Total 0.4 mg/dL (0.0-1.0); Blood Urea Nitrogen 9 mg/dL (9-16); Calcium 9.9 mg/dL (8.4-10.2); Carbon Dioxide 26 mmol/L (22-29); Chloride 103 mmol/L (96-108); Creatinine Clr Calc Pharmacy 86.7; Estimated Glomerular Filt Rate > 60; Glucose Random 91 mg/dL (60-115); Sodium 138 mmol/L (135-145); Total Protein 7.8 g/dL (6.5-8.0)
[2021-05-26 16:26] LABS: Troponin-I High Sensitivity 4.5 ng/L (<3.5-17.0)
[2021-05-26 16:28] LABS: Appearance Urine CLEAR; Color Urine YELLOW; Glucose Urine UA NEG (NEG); Leukocyte Esterase Urine NEG (NEG); Nitrite Urine NEG (NEG); PH 5.5 (5.0-8.0); Specific Gravity - Urine >= 1.030 (1.005-1.025); Urine Blood NEG (NEG); Urine Ketones NEG (NEG); Urine Protein NEG (NEG-TRACE)
[2021-05-26 16:30] LABS: UPreg QC Valid YES; Urine Pregnancy NEGATIVE (NEGATIVE)
[2021-05-26 16:44] VITALS: BP 134/57; PULSE 63; RESP 16; TEMP 36.1; O2SAT 98
== END 2021-05-26 17:27 | disposition home or self-care (01) ==
PROVIDERS: Nurse Practitioner Family; Emergency Provider Emergency Medicine; PCP Physician Assistant
DX: R07.89 Other chest pain (principal); R51.9 Headache, unspecified; R14.0 Abdominal distension (gaseous); Z20.822 Contact with and (suspected) exposure to COVID-19; I10 Essential (primary) hypertension
CPT/HCPCS: 36415; 70450; 71045; 80053; 81003; 81025; 84484; 85025; 87502; 87635; 93005; 96361; 96374; 96375; 99284; J1200; J1885; J2765

== ENCOUNTER → 2021-06-13 08:51 | Outpatient (REF) | payer OTHER, SELFPAY ==
--- NOTE | 2021-06-13 08:54 | CA_ITS ---
Acquisition Time: 2021-06-13 09:09:54 Total Exercise Time: 00:06:18 Test Indications: SOB Medications: SEE CHART Protocol: LALITO Max HR: 144 BPM 82% of Pred: 174 BPM Max BP: 130/070 mmHG Max Work Load: 7.4 METS Exercise stress test with exercise 6 min 18 sec of Lalito protocol, achieving 82% MPHR, 7.4 METs, with request to stop due to bilateral feet numbness, mild sob and lightheadedness, no chest discomfort, with one PVC, with normtensive response to exercise, without EKG changes meeting criteria for ischemia at achieved workload. Accuracy to assess for ischemia mildly decreased due to inability to acheive 85% MPHR. Pt reports having a history of low back discomfort and bilateral feet numbness with walking at times. In recovery her symptoms improved and gradually resolved. Test reviewed with Dr Montero. Referred By: Reynaldo Santana Overread By: ANN WEINBERG
== END ==
LOC: HO.CARD 08:51
PROVIDERS: PCP Physician Assistant; Visit Provider Physician Assistant
DX: R06.02 Shortness of breath (principal)
CPT/HCPCS: 93017

== ENCOUNTER → 2021-10-15 11:24 | Outpatient (BNVA) | payer OTHER, SELFPAY | PROVIDERS: PCP Physician Assistant; Visit Provider Nurse Practitioner | DX: Z01.818 Encounter for other preprocedural examination (principal); K21.9 Gastro-esophageal reflux disease without esophagitis; K59.04 Chronic idiopathic constipation; R14.0 Abdominal distension (gaseous) | CPT/HCPCS: 99202; 99212 ==

== ENCOUNTER → 2021-11-06 16:02 | Outpatient (BNVA) | payer OTHER, SELFPAY | PROVIDERS: PCP Physician Assistant; Visit Provider Nurse Practitioner | DX: K59.04 Chronic idiopathic constipation (principal); K21.9 Gastro-esophageal reflux disease without esophagitis | CPT/HCPCS: 99212 ==

== ENCOUNTER 2022-02-18 09:51 | Outpatient (REF) | payer OTHER, SELFPAY ==
--- NOTE | 2022-02-18 | EMG_ITS ---
Please see scanned EMG / Nerve Conduction Report. MTDD
== END 2022-02-18 09:52 | disposition home or self-care (01) ==
LOC: HO.NEURO 09:51
PROVIDERS: PCP Physician Assistant; Visit Provider Physician Assistant
DX: G56.01 Carpal tunnel syndrome, right upper limb (principal)
CPT/HCPCS: 95885; 95913

== ENCOUNTER 2022-03-09 12:10 | Day surgery (SDC) | payer OTHER, SELFPAY ==
[2022-03-09 13:18] VITALS: BMI 26.7
[2022-03-09 13:35] VITALS: BP 151/82; PULSE 87; RESP 18; TEMP 36.6; O2SAT 99
--- NOTE | 2022-03-09 14:06 | PC.NURSE ---
Dr. Medrano updated that patient told route sales representative that she ate a hot dog yesterday at noon and started prep early yesterday evening with prep results of yellow liquid. Dr. Medrano stated okay to proceed.
--- NOTE | 2022-03-09 15:17 | P.CONAN_ITS ---
HPI - Anesthesia Eval Consult details Narrative: 47 F for colonoscopy [facility] Active Problems Active Problems: All Active Problems (Updated 03/04/22 @ 13:28 by Vivian Bean RN) HTN (hypertension) (Acute) Left breast mass (Acute) Ovarian cyst (Acute) HLD (hyperlipidemia) (Acute) Asthma (Acute) GERD (gastroesophageal reflux disease) (Acute) Migraines (Acute) MDD (major depressive disorder), recurrent episode, moderate (Acute) Lumbar disc disease (Acute) Thyroid nodule (Acute) Pelvic pain (Acute) Left breast lump (Acute) Mastodynia of left breast (Acute) Constipation (Acute) Right wrist pain (Acute) Degenerative lumbar spinal stenosis (Acute) Right carpal tunnel syndrome (Acute) Numbness and tingling in both hands (Acute) Abdominal bloating (Acute) SOB (shortness of breath) on exertion (Acute) Near syncope (Acute) Vision disturbance (Acute) Migraines (Acute) Hyperpigmentation (Acute) Abdominal bloating (Acute) Chronic idiopathic constipation (Acute) Pre-op examination (Acute) Past Medical History Medical History (Updated 03/04/22 @ 13:28 by Vivian Bean RN) Asthma Depression Elevated cholesterol GERD (gastroesophageal reflux disease) HTN (hypertension) Lumbar disc disease Migraines Functional capacity: independent ambulation Family History Family History Father Cancer Diabetes Heart problem AD (Alzheimer's disease) Mother Arthritis High blood pressure Other Mental problem Substance abuse Family history of problems with anesthesia: No Surgical History Surgical History H/O: hysterectomy Tubal ligation status History of Problems with Anesthesia: No Social History Social History Housing: Apartment Alcohol intake: never Patient Tobacco Use Status: Never used Tobacco e-Cigarette/Vaping Use: Never Used Second Hand Smoke Exposure: Yes Advance Directives: No Advance Directives Information Provided: Yes Nutrition Risks: No Nutritional Risk service: No Current occupational status: unemployed 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 Cognitive needs: No Hearing needs: No Vision needs: No Meds Allergies Allergy/AdvReac Type Severity Reaction Status Date / Time lisinopril AdvReac Intermediate Cough Verified 03/09/22 13:15 Home Medications Medication Instructions Recorded Confirmed Last Taken Type citalopram 20 mg tablet 20 mg PO DAILY 05/13/21 03/04/22 Unknown History trazodone 50 mg tablet 50 mg PO BEDTIME 05/13/21 03/04/22 Unknown History Exam Exam Date and Time: March 09, 2022 1517 Height,Weight and Vital Signs: Height 5 ft 4 in Weight 70.76 kg Last Vital Signs Temp 97.9 F 03/09/22 13:35 Pulse 87 03/09/22 13:35 Resp 18 03/09/22 13:35 BP 151/82 H 03/09/22 13:35 Pulse Ox 99 03/09/22 13:35 O2 Del Method 03/09/22 13:35 Airway Mallampati Class: III TM Dist: >3cm Neck ROM: Full Loose/Missing/Broken Teeth: Yes Heart: S1,S2 Lungs: b/l breath sounds Assessment and Plan Assessment Anesthesia Assessment: Anesthesia Plan Discussed and Chart Reviewed Final Anesthetic Review Family History of Problems with Anesthesia: No History of Problems with Anesthesia: No NPO: Yes ASA Class: III Final Preanesthetic Review: Meds/Allgs Chart Reviewed, Consent Obtained/Reviewed and Anes Risks/Benef Reviewed Patient Risk: Intermediate Procedure Risk: Intermediate Anesthetic Plan Anesthetic Plan: MAC: Disposition: Standard PACU
--- NOTE | 2022-03-09 15:35 | PC.NURSE ---
Patient moved to PACU while awaiting procedure, report given to Clarence Leon RN at this time.
--- NOTE | 2022-03-09 15:41 | MHC.SHP ---
Pre-Procedural Eval Section A Date of Service: 03/09/22 The patient is an INPATIENT: No The History & Physical has been completed within 30 days and I have reviewed it.: No Section B Chief Complaint: Slow transit constipation,screening Relevant Family History (Specify if Yes): Yes Relevant Social History: None Present Medications: see Short Stay Collaborative assessment Medical History: Significant History (htn, HLD, asthma, migraine headaches, chronic constipation) History of Previous Operations: Relevant previous surgery/procedure and date(s) (H/O: hysterectomy Tubal ligation status) Allergies: Allergies Allergy/AdvReac Type Severity Reaction Status Date / Time lisinopril AdvReac Intermediate Cough Verified 03/09/22 13:15 Review of Systems Sugical H&P ROS: Negative: Constitution, Cardiovascular, Respiratory and Gastrointestinal Exam Surgical H&P Exam: Normal: Heart, Normal: Lungs, Normal: Extremities and Normal: Abdomen Plan Diagnosis/Plan: Unchanged I have reviewed the history and physical and performed a pertinent physical examination on my patient. No changes have occurred unless specified. Time Spent With Patient Time: Total time managing care of this patient today ____ minutes.
--- NOTE | 2022-03-09 16:05 | PM.OP ---
Brief Operative Note Date of Service: 03/09/22 Pre-op diagnosis: Colon cancer screening, chronic constipation Post-op diagnosis: other (Diverticulosis, hemorrhoids) Procedure: COLONOSCOPY TILL CECUM Surgeon: Leonora Medrano MD Anesthesia: MAC Was an Material Requirements Planning Manager used for this Procedure?: No Estimated blood loss (mL): 0 Pathology: none sent Condition: stable Disposition: PACU
--- NOTE | 2022-03-09 16:06 | W.PM.OPN ---
Operative Note Operative Note Date of Service: 03/09/22 Narrative: Pre-op diagnosis: Colon cancer screening, chronic constipation Post-op diagnosis:?other (Diverticulosis, hemorrhoids) Surgeon: Leonora Medrano MD Anesthesia:?MAC COLONOSCOPY TILL CECUM Consent: Indications for the procedure and potential complications of bleeding, perforation, reaction to medications and missed diagnosis were discussed with the patient and informed consent was obtained. Instrument: Olympus PCF H 190 L variable stiffness pediatric colonoscope Monitoring: Vital signs and clinical assessment, intermittent blood pressure monitoring, continuous EKG monitoring, Pulse oximetry and Carbon Dioxide monitoring were done throughout the procedure. Colon withdrawl time was 12 minutes. Procedure: The patient was placed in the left lateral decubitis position and pre-procedure medications were administered. After a digital rectal examination of the ano-rectum, the video colonoscope was inserted into the rectum and advanced through the colon to the cecum. The colonoscope was slowly withdrawn in a retrograde panoramic fashion and the colon mucosa was carefully examined including a retroflexed view of the rectum. Findings and interventions are described below. Procedure Difficulty: Without difficulty Findings: Terminal Ileum: Not evaluated Cecum: Normal Ascending Colon: Normal Transverse Colon: Normal Descending Colon: Moderate diverticulosis Sigmoid Colon: Moderate diverticulosis Rectum: Normal Ano-rectum: Small internal hemorrhoids Colon preparation: Good after some irrigation Impression and Post Procedure Diagnosis: Colonoscopy Findings: No polyps were detected Moderate diverticulosis seen in the left colon Small hemorrhoids on retroflexed exam. Plan: Patient has an appointment on 03/24/22 in the GI Clinic with Consuelo Brizuela NP. Repeat Colonoscopy in 10 years. Above findings were reviewed with the patient and diverticulosis handout was given in the discharge area
[2022-03-09 16:51] VITALS: BP 99/51; PULSE 81; RESP 17; TEMP 36.7; O2SAT 98
[2022-03-09 16:58] VITALS: RESP 15; O2SAT 98
[2022-03-09 17:03] VITALS: BP 108/56; PULSE 76; RESP 16; O2SAT 98
[2022-03-09 17:18] VITALS: BP 119/70; PULSE 77; RESP 18; TEMP 36.4; O2SAT 97
== END 2022-03-09 17:47 | disposition home or self-care (01) ==
PROVIDERS: PCP Physician Assistant; Visit Provider Internal Medicine Gastroenterology
PROC: 0DJD8ZZ Inspection of Lower Intestinal Tract, Via Natural or Artificial Opening Endoscopic (ICD-10-PCS; CPT 45378; principal; 2022-03-09 13:40)
DX: Z12.11 Encounter for screening for malignant neoplasm of colon (principal); K59.01 Slow transit constipation; K57.30 Diverticulosis of large intestine without perforation or abscess without bleeding; K64.8 Other hemorrhoids; K21.9 Gastro-esophageal reflux disease without esophagitis; J45.909 Unspecified asthma, uncomplicated; I10 Essential (primary) hypertension; E78.00 Pure hypercholesterolemia, unspecified; Z79.51 Long term (current) use of inhaled steroids; Z79.899 Other long term (current) drug therapy; Z88.8 Allergy status to other drugs, medicaments and biological substances
CPT/HCPCS: 45378

== ENCOUNTER 2022-04-15 13:42 | Outpatient (REF) | payer OTHER, SELFPAY ==
--- NOTE | ~2022-04-15 | MM_ITS ---
EXAMINATION: MM SCREENING DIGITAL BREAST TOMOSYNTHESIS, BILATERAL CLINICAL INFORMATION: Screening. Asymptomatic. The lifetime risk of breast cancer based on the Tyrer-Cuzick Model is 8%. COMPARISON: Mammography: 04/26/2020 (new baseline, diagnostic); left breast ultrasound 04/26/2020. TECHNIQUE: Digital breast tomosynthesis is performed in both the craniocaudal and mediolateral oblique views along with computer-aided detection (CAD). Synthesized 2D images are generated from the tomosynthesis. Additional bilateral MLO views are provided. FINDINGS: There are scattered areas of fibroglandular density (ACR BI-RADS breast composition Category b). Parenchymal pattern is similar to prior new baseline exam. There is a small stable nodule mid upper left breast corresponding to an intradermal cysts on targeted ultrasound. There is no developing density or interval significant mass or architectural abnormality. No abnormal calcifications. The axilla are unremarkable. MM/MM tomosynthesis screening BI IMPRESSION: -No significant changes from prior exam. -Small intradermal lesion mid upper left breast stable. ASSESSMENT: BI-RADS 2: Benign RECOMMENDATION: Routine annual mammography screening. This patient's information was entered into a reminder system with a target due date for their next mammogram.
== END 2022-04-15 13:43 | disposition home or self-care (01) ==
LOC: HO.MAMMO 13:42
PROVIDERS: PCP Physician Assistant; Visit Provider Physician Assistant
DX: Z12.31 Encounter for screening mammogram for malignant neoplasm of breast (principal)
CPT/HCPCS: 77063; 77067

== ENCOUNTER 2022-05-22 10:40 | Outpatient (REF) | payer OTHER, SELFPAY ==
[2022-05-22 11:36] LABS: Alanine Aminotransferase 18 U/L (0-31); Alkaline Phosphatase 62 U/L (39-117); Anion Gap 13 (12-20); Aspartate Amino Transferase 11 U/L (5-31); Bilirubin Total 0.6 mg/dL (0.0-1.0); Blood Urea Nitrogen 10 mg/dL (9-16); Calcium 8.9 mg/dL (8.4-10.2); Carbon Dioxide 25 mmol/L (22-29); Chloride 108 mmol/L (96-108); Cholesterol 210 mg/dL; Estimated Glomerular Filt Rate > 60; Glucose Fasting 101 mg/dL (60-99); HDL Cholesterol 43 mg/dL; LDL Cholesterol Calculated 149 mg/dl; Potassium 4.7 mmol/L (3.3-5.1); Sodium 141 mmol/L (135-145); Total Protein 6.7 g/dL (6.5-8.0); Triglycerides 90 mg/dL
[2022-05-22 12:41] LABS: Creatinine Urine 202.25 mg/dL; Microalbum/Creatinine Ratio Ur 4.9 ug/mg cr
== END 2022-05-22 10:41 | disposition home or self-care (01) ==
LOC: HO.LAB 10:40
PROVIDERS: PCP Physician Assistant; Visit Provider Physician Assistant
DX: E78.2 Mixed hyperlipidemia (principal); I10 Essential (primary) hypertension
CPT/HCPCS: 36415; 80053; 80061; 82043

== ENCOUNTER → 2022-07-01 11:08 | Outpatient (BNVA) | payer OTHER, SELFPAY | PROVIDERS: PCP Physician Assistant; Visit Provider Orthopaedic Surgery | DX: G56.03 Carpal tunnel syndrome, bilateral upper limbs (principal) | CPT/HCPCS: 99212 ==

== ENCOUNTER 2022-07-16 13:00 | Outpatient (RCR) | payer OTHER, SELFPAY ==
--- NOTE | 2022-06-19 10:17 | MHC.OT.EP ---
[address] [phone] Occupational Therapy Plan of Care Patient Name: Mya Richards Date of Evaluation: 06/19/22 Diagnosis: B/L median neuropathy Pain Location: 7-8 resting pain, right arm worse than left, reporting diffuse pain Pt reports hand gets numb, swollen and purple/black with use Pain Score: 8 Pain Scale Used: Numeric (0 - 10) Aggravating Factors: Picking up objects, using hands, sleep positions Alleviating Factors: Ice occasionally Assessment: 47 yo female saw her PCP w/ B/L hand pain and numbness, reportedly for >10 years. EMG shows bilateral moderate median neuropathy. Now referred to OT for management of B/L carpal tunnel syndrome. She has not been working for several years due to hand pain, but is just starting the process of MD workout and therapy process. she lives at home with her family and is active w/ arts, sewing and dancing, but has difficulty w/ heavier daily activities requiring forceful use of hands/arms like cooking and cleaning. She reports dropping items frequently and has low endurance for activities, right hand swelling w/ overuse. On assessment, she does have visible edema B/L'ly and has picture of right hand with significant edema over dorsum and in webspace. Sensory testing is slightly impaired on right hand-median aspect and she has (+) Phalen's B/L'ly. Signs and symptoms consitant w/ median neuropathy, however may have compression higher in neck as well. she will benefit from cont'd therapy services to address issues with goal of decreasing pain/numbness and increasing participation in daily activities. Frequency and Duration: The patient will be seen 2x/wk for 6 weeks Short Term Goals: Ind w/ HEP Ind w/ nighttime orthosis wear Pt to report increasing daily activity to include light cardio-focused (walking, etc) activity Pt to demo good follow through w/ joint protection for hand/wrist arthritis and tendinitis w/ daily activities Gang Hemstitching Machine Operator Goals: QuickDASH score <35pts Pt to report ease w/ sleeping Pain free w/ light daily activities (folding laundry, putting dishes away) Pt to report ease of B/L hand numbness Right gross grasp 50lb Treatment Plan: Therapeutic Exercise Therapeutic Activity Home Exercise Program Splinting Patient Education Edema Control ADL Training Ultrasound Paraffin Fluidotherapy MHP Cold Packs Soft Tissue Mobilization Kinesiotaping Nighttime orthosis Electronically Signed By: Lydia Patel OTR/L CHT Please Sign and return to therapist. Thank you once again for your referral.
--- NOTE | 2022-08-26 10:49 | MHC.OT.DC ---
[address] [phone] F: [phone] Occupational Therapy Discharge Note Patient Name: Mya Richards Provider: Reynaldo Santana PA-C Diagnosis: B/L median neuropathy Date of Evaluation: 06/19/22 Date of Discharge: 08/26/22 Treatments to Date: 4 Cancellations to Date: 3 Discharge Status: Patient Elected to Stop Discharge Summary: Mya was referred to OT w/ B/L hand numbness and pain. She was seen for several OT visits but was scheduled for carpal tunnel release. During course of therapy, pt reported no significant progress w/ pain or numbness and still fatigued easily. No comfort/relief w/ nighttime orthosis. She has not followed up for further therapy at this time. Electronically Signed By: Lydia Patel, OTR/L CHT Please Sign and return to therapist, thank you for your referral.
== END 2022-08-26 10:50 | disposition home or self-care (01) ==
LOC: HO.OT 13:00
PROVIDERS: PCP Physician Assistant; Visit Provider Physician Assistant
DX: G56.11 Other lesions of median nerve, right upper limb (principal)
CPT/HCPCS: 29125; 97110; 97140; 97166; 97760

== ENCOUNTER 2022-08-03 08:00 | Day surgery (SDC) | payer OTHER, SELFPAY ==
[2022-08-03 08:15] VITALS: BP 163/75; PULSE 67; RESP 16; TEMP 36.4; O2SAT 99
[2022-08-03 08:30] VITALS: BMI 27.5
--- NOTE | 2022-08-03 09:33 | MHC.SHP ---
Pre-Procedural Eval Section A Date of Service: 08/03/22 The patient is an INPATIENT: No Changes since office visit: No Cold of Flu in the past 2 weeks, No New Medical Problems, No Changes in Medication and No Patient answered all questions The History & Physical has been completed within 30 days and I have reviewed it.: Yes Section B Chief Complaint: Carpal tunnel syndrome, right upper limb Allergies: Allergies Allergy/AdvReac Type Severity Reaction Status Date / Time lisinopril AdvReac Intermediate Cough Verified 07/01/22 11:43 Plan I have reviewed the history and physical and performed a pertinent physical examination on my patient. No changes have occurred unless specified. Time Spent With Patient Time: Total time managing care of this patient today ____ minutes.
--- NOTE | 2022-08-03 09:34 | W.PM.OPN ---
Operative Note Operative Note Date of Service: 08/03/22 Narrative: Preop diagnosis: 1. right Carpal tunnel syndrome Postop diagnosis: same Procedure: 1. right Carpal tunnel release Surgeon: Annabelle Liz MD Anesthesia: local block using 1% lidocaine with epinephrine Findings: Thickened transverse carpal ligament. EBL: Less than 5 mL Specimens: None Complications: None Disposition: Brought to recovery room in stable condition Plan: Follow-up for 10-14 days for wound check and suture removal Indications: The patient is 47 years old, with right carpal tunnel syndrome that has been unresponsive to nonoperative management. The risks and benefits of operative treatment including but not limited to risk of damage to blood vessels, nerves, tendons, infection, persistent pain, persistent symptoms, or possible need for additional surgery were discussed with the patient and the patient wishes to proceed with surgery. Procedure: Once consent was obtained a local block was performed using a combination of 1% lidocaine with epinephrine. The patient was then brought back to the operating suite and placed on the operative table in supine position. The right upper extremity was prepped and draped in a standard surgical fashion. Once assured that we had a good block, a 2.0 cm longitudinal incision was made centered over the carpal tunnel. The incision was made through the skin to the subcutaneous tissues using a #15 blade. Dissection was made down to the level of the transverse carpal ligament with care being taken to protect the palmar cutaneous nerve. Once the transverse carpal ligament was clearly visualized, a longitudinal incision was made in the transverse carpal ligament 1st using a #15 blade, then using tenotomy scissors under direct visualization. Care was taken to look for and protect the motor branch of the median nerve when seen in this area. Once satisfied with our carpal tunnel release the wound was copiously irrigated with normal saline and hemostasis was obtained with a brief period of local pressure. The skin edges were reapproximated with some 5.0 nylon suture material and a sterile dressing was applied. The patient appears to have tolerated the procedure well and with no complications. All digits were well vascularized at the conclusion of the case.
== END 2022-08-03 10:30 | disposition home or self-care (01) ==
PROVIDERS: PCP Physician Assistant; Visit Provider Orthopaedic Surgery
PROC: (CPT 64721; principal; 2022-08-03 09:00)
DX: G56.01 Carpal tunnel syndrome, right upper limb (principal); M25.641 Stiffness of right hand, not elsewhere classified; R20.0 Anesthesia of skin; R20.2 Paresthesia of skin; R53.1 Weakness; J45.909 Unspecified asthma, uncomplicated; I10 Essential (primary) hypertension; E78.00 Pure hypercholesterolemia, unspecified; R73.03 Prediabetes; F32.A Depression, unspecified; Z79.899 Other long term (current) drug therapy; Z88.8 Allergy status to other drugs, medicaments and biological substances
CPT/HCPCS: 64721; J0171; J2795

== ENCOUNTER → 2022-08-17 09:41 | Outpatient (BNVA) | payer OTHER, SELFPAY | PROVIDERS: Visit Provider Physician Assistant ==

== ENCOUNTER 2022-09-22 14:25 | Outpatient (AMB) | payer OTHER, SELFPAY ==
--- NOTE | 2022-09-22 14:32 | MHC.OFFVIS ---
Intake Vital Signs 09/22/22 14:36 Height 5 ft 4 in Weight 160 lb BMI 27.5 Handedness Right Intake Visit Reasons: OV - discuss left CTR Intake Note: Mya 47 yr old right hand dominant female presents today for her left CTS. She is s/p right CTR with Dr. Liz from 08/03/22. She states that she would like to hold off on the CTR on her left wirst due to it not being as bad as her right hand. Allergies lisinopril Adverse Reaction (Intermediate, Verified 09/22/22 14:36) Cough HPI OV - discuss left CTR HPI Details May is a 47 year old right hand dominant Russian speaking woman who presents to discuss her left carpal tunnel syndrome. She is S/P right carpal tunnel release, DOS: 08/03/22, with good improvement of her symptoms. She continues to have left hand numbness in the median nerve distribution, symptoms intermittent and occasional, worse at night. She says this is not as bothersome as her right side was and does not want surgery at this time. She wants to continue to recover from her right carpal tunnel release before discussing treatment for her left hand. In regards to her right hand she says her sensation has improved compared with before surgery. She continues to have pain and swelling in her right hand, which has improved somewhat in the last few weeks but continues to be present Her PCP ordered OT hand therapy to work on her right hand swelling, she attended 4/7 sessions, with her last on 07/16/22, and was discharged on 08/26/22. 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 Cognitive needs: No Hearing needs: No Vision needs: No Female Reproductive History Menstrual Age of Menarche: 12 Review of Systems Const All systems reviewed & are unremarkable except as noted in HPI and below Physical Exam Vital Signs: BMI result Body Mass Index 27.5 Const General: no acute distress and alert Orientation/consciousness: patient oriented x3 Neuro General: patient oriented x3 Extrem Other: Evaluation of right Upper Extremity: The patient is alert, oriented, and in no acute distress Neuro: Median, Ulnar, Radial nerves motor and sensory intact and sensation is normal to the tips of all digits Vascular: Cap refill brisk ROM: She can make a fist and extend all her digits. No locking or catching She has this large pigmented lesion over the dorsal radial aspect of her right hand. She says it has been there for more than 20 years and she is not sure if it has gotten bigger. Nerve conduction study: Impression: Moderate compression palsy of the median nerve at the wrist bilaterally consistent with moderate bilateral carpal tunnel syndrome. Please see his report for additional information as necessary Seen by Dr. Tidwell 02/18/2022 Psych Appearance: grossly normal Affect: normal affect Attitude: cooperative Assessment & Plan Assessment & Plan (1) Bilateral carpal tunnel syndrome: Code(s): G56.03 - Carpal tunnel syndrome, bilateral upper limbs (2) Swelling of right hand: Code(s): M79.89 - Other specified soft tissue disorders Plan Assessment and plan: 1. Left carpal tunnel syndrome, moderate Symptoms intermittent and occasional, worse at night I educated her about this condition, and the risks of delaying treatment too long She would like to wait on treatment at this time She will contact the clinic when she would like an appointment to discuss surgery 2. Right carpal tunnel syndrome, S/P release DOS: 08/03/22 Pre-operative symptoms intermittent but daily Now with improved but not quite normal sensation She says she continues to have some pain and hypersensitivity about her incision site I ordered OT hand therapy to work on desensitization and normalizing hand function She will work on ROM exercises at home 3. Bilateral hand swelling up past her elbows, and stiffness Etiology unclear. I referred her to OT hand therapy 4. Pigmented lesion on dorsal radial aspect of right hand She does not believe it has changed in size over the last 20 years. She did talk to her primary care provider and believes has been referred to Dermatology but has not yet seen the dry transfer worker. We encouraged her to be persistent and making sure she is seen. Scribed for Annabelle Liz MD by Kei Mao, medical educator, on 09/22/22 at 2:55 PM, EST. Orders: Orders OT Evaluation and Treatment Today G56.03 - Carpal tunnel syndrome, bilateral upper limbs Coding Level of Care Code Est Pt Level 3 (39935) Diagnoses Bilateral carpal tunnel syndrome G56.03 Swelling of right hand M79.89
[2022-09-22 14:36] VITALS: BMI 27.5
== END 2022-09-22 15:03 | disposition home or self-care (01) ==
PROVIDERS: PCP Physician Assistant; Visit Provider Orthopaedic Surgery
DX: G56.03 Carpal tunnel syndrome, bilateral upper limbs (principal); M79.89 Other specified soft tissue disorders
CPT/HCPCS: 99213

== ENCOUNTER → 2022-09-22 14:25 | Outpatient (BNVA) | payer OTHER, SELFPAY | PROVIDERS: PCP Physician Assistant; Visit Provider Orthopaedic Surgery | DX: G56.03 Carpal tunnel syndrome, bilateral upper limbs (principal); M79.89 Other specified soft tissue disorders | CPT/HCPCS: 99212 ==

== ENCOUNTER 2022-10-31 20:20 | Emergency (ER) | payer OTHER, SELFPAY ==
--- NOTE | 2022-10-31 20:21 | ECG_ITS ---
Test Reason : CHEST PAIN Blood Pressure : / mmHG Vent. Rate : 095 BPM Atrial Rate : 095 BPM P-R Int : 144 ms QRS Dur : 088 ms QT Int : 352 ms P-R-T Axes : 050 018 046 degrees QTc Int : 442 ms Normal sinus rhythm Normal ECG When compared with ECG of 26-MAY-2021 14:21, No significant change was found Referred By: Allison Pratt Electronically Signed By:STANFORD JOYA
[2022-10-31 21:49] VITALS: BP 156/72; PULSE 86; RESP 18; TEMP 36.7; O2SAT 100; BMI 28.3
[2022-10-31 22:14] LABS: Hematocrit 37.1 % (37.0-47.0); Hemoglobin 11.9 g/dl (12.0-16.0); Mean Corpuscular HGB Conc 32.1 g/dl (31.0-35.0); Mean Corpuscular Hemoglobin 27.2 pg (27.0-33.0); Mean Corpuscular Volume 84.9 fL (80.0-98.0); Mean Platelet Volume 10.6 fL (9.4-12.3); Platelet Count 279 X10*3/uL (160-400); Red Blood Count 4.37 X10*6/uL (4.20-5.50); White Blood Count 11.1 X10*3/uL (4.8-10.8)
[2022-10-31 22:30] LABS: Alanine Aminotransferase 18 U/L (0-31); Alkaline Phosphatase 57 U/L (39-117); Anion Gap 10 (12-20); Aspartate Amino Transferase 13 U/L (5-31); Bilirubin Total 0.3 mg/dL (0.0-1.0); Blood Urea Nitrogen 8 mg/dL (9-16); Calcium 9.2 mg/dL (8.4-10.2); Carbon Dioxide 27 mmol/L (22-29); Chloride 109 mmol/L (96-108); Estimated Glomerular Filt Rate > 60; Glucose Random 101 mg/dL (60-115); Potassium 3.8 mmol/L (3.3-5.1); Sodium 142 mmol/L (135-145)
[2022-10-31 22:35] LABS: Troponin-I High Sensitivity < 2.7 ng/L (<3.5-17.0)
[2022-10-31 23:59] VITALS: BP 129/60; PULSE 73; RESP 16; TEMP 36.8; O2SAT 98
--- NOTE | 2022-11-01 | MHC.EDTECH ---
THIS PCT JUST ASSUMED CARE OF PT ,VITALS SIGN TAKEN ,PT WAS HOOKED UP TO MANUFACTURING WORKER ,PT RESTING QUIETLY IN BED .
--- NOTE | 2022-11-01 00:47 | ED_ITS ---
HPI - Chest Pain General Chief Complaint: Chest Pain Stated Complaint: chest pain,sob Time Seen by Provider: 11/01/22 00:47 Source: patient Mode of arrival: ambulatory Limitations: language barrier (Patient's 1st language is [place] Citizen she does speak some Mohawk, iPad chemical tester was used) History of Present Illness HPI narrative: 47-year-old female who presents emergency department for evaluation of chest pain and headache. She states approximately 1 hour prior to coming to the emergency department she developed left-sided chest pain . She describes the pain is a pressure-like sensation which is worse with movement. She states the pain is been intermittent and lasts approximately 10 minutes, she has had multiple episodes since onset. At the time of evaluation the pain resolved. She states the pain did radiate down her left arm. She had associated shortness of breath. She denied lightheadedness, dizziness, nausea, vomiting, diaphoresis. He has had similar chest pain in the past She states that after she developed the pain in her chest , this caused her blood pressure to get high and then she developed a pressure-like pain in her head. That similar headaches in the past as well. States that the chest pain was 6/10 at its worse and headache was 6/10 is worse as well. Patient denied fever, rhinorrhea. She states she has had a sore throat since this to allergies and asthma. Related Data Home Medications Medication Instructions Recorded Confirmed citalopram 20 mg tablet 20 mg PO DAILY 05/13/21 05/27/22 Previous Rx's Medication Instructions Recorded docusate sodium 100 mg capsule 100 mg PO DAILY 30 days #30 caps 05/08/20 (Colace) miscellaneous medical supply #1 ea 05/08/20 (Blood Pressure Cuff) miscellaneous medical supply 1 ea miscellaneous DAILY 99 days 08/07/20 #1 ea sumatriptan succinate 25 mg tablet See Rx Instructions PO .COMPLEX #9 06/04/21 tabs bisacodyl 5 mg tablet,delayed 10 mg (2 x 5 mg) PO BEDTIME 30 10/15/21 release (Dulcolax (bisacodyl)) days #60 tabs simethicone 180 mg capsule 180 mg PO QID 30 days #120 caps 10/15/21 lidocaine 5 % topical patch 1 patch topical DAILY 30 days #30 11/26/21 ea atorvastatin 10 mg tablet 10 mg PO DAILY #30 tabs 11/22/22 famotidine 20 mg tablet 20 mg PO DAILY #30 tabs 01/06/22 albuterol sulfate 2.5 mg/3 mL 2.5 mg (3 mL) inhalation Q4-6H PRN 05/27/22 (0.083 %) solution for nebulization shortness of breath or wheezing 30 days #90 mL albuterol sulfate 90 mcg/actuation 1 inh inhalation QID 30 days #8.5 05/27/22 aerosol inhaler (Ventolin HFA) grams amlodipine 10 mg tablet 10 mg PO DAILY 30 days #30 tabs 05/27/22 cetirizine 10 mg tablet 10 mg PO DAILY #30 tabs 05/27/22 fluticasone propionate 110 1 puff PO BID #12 grams 05/27/22 mcg/actuation HFA aerosol inhaler (Flovent HFA) naproxen 500 mg tablet 500 mg PO BID #60 tabs 05/27/22 arm sling #1 ea 08/04/22 oxycodone-acetaminophen 5 mg-325 1 tab PO Q6H PRN pain 2 days #8 08/05/22 mg tablet tabs ibuprofen 400 mg tablet 400 mg PO TID PRN fever or pain 11/01/22 #30 tabs Allergies Allergy/AdvReac Type Severity Reaction Status Date / Time lisinopril AdvReac Intermediate Cough Verified 09/22/22 14:36 Review of Systems 2 Review of Systems: Yes all other systems are reviewed and are negative [facility] Past Medical History [facility] Narrative: Social history: She denies tobacco, alcohol and drug use. Medical History Depression Migraines Lumbar disc disease GERD (gastroesophageal reflux disease) Elevated cholesterol HTN (hypertension) Asthma Surgical History Tubal ligation status H/O: hysterectomy Family History Family History Father Cancer Diabetes Heart problem AD (Alzheimer's disease) Mother Arthritis High blood pressure Other Mental problem Substance abuse Social History Social History Housing: Apartment Alcohol intake: never Patient Tobacco Use Status: Never used Tobacco e-Cigarette/Vaping Use: Never Used Second Hand Smoke Exposure: Yes Advance Directives: No Advance Directives Information Provided: No service: No Current occupational status: unemployed 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 Exam: General: Awake, alert in no distress Head: Normocephalic, atraumatic EENT: PERRL, Lids normal, sclera normal, conjunctiva normal, nose normal , ears normal, throat without erythema or exudates Neck: Supple, no adenopathy, trachea midline and nontender Lung: breath sounds symmetric, no wheezing, rales or rhonchi Chest: symmetric movement, tender left anterior and lateral chest wall Heart: regular rate and rhythm, normal S1, S2 no murmurs or rubs Abdomen: soft, non-tender, nondistended, normal bowel sounds Back: no vertebral tenderness, no CVAT Extremities: no deformities, moves all extremities symmetrically Skin: no rashes, no lesion, normal color and warmth Neuro: Awake, alert, oriented, normal speech, cranial nerves intact, moves all extremities symmetrically Psych: Pleasant, cooperative Medical Decision Making Medical Decision Making MDM Narrative: 47-year-old female with a history of migraine headache, hypertension, hyperlipidemia, asthma, GERD, who presents emergency department for evaluation of left-sided chest pain that started 1 hour prior to coming to the emergency department, the chest pain was intermittent, lasting 10 minutes but recurring frequently, she states that the chest pain then triggered elevation in her blood pressure which caused have a headache. She has had similar symptoms in the past. The patient's vital signs were unremarkable. Physical examination did reveal left-sided anterior and lateral chest wall tenderness otherwise was normal pain. The following evaluation was ordered on the patient: CBC, CMP, troponin, EKG 0123: Patient's CBC and CMP were unremarkable, high sensitive troponin I was below detectable limits, EKG was unremarkable. Patient's presentation is consistent with costochondritis which then triggered a migraine-like headache and the patient Patient was given ibuprofen 400 mg orally, she was advised to take ibuprofen for her mg every 6 hours as needed for pain , she was given printed and verbal instructions and discharged home. Differential Diagnosis Differential Diagnoses: The differential diagnosis associated with the presentation includes Differential diagnosis includes was not limited to myocardial infarction, myocardial ischemia, chest wall pain, costochondritis, electrolyte abnormality, anemia Admission/Observation Consideration of admission/observation: Escalation of care including admission/observation considered Lab Data MDM Lab Attestation statement: I reviewed the patient's lab results. My independent interpretation patient's laboratory evaluation as follows: CBC was normal, CMP was normal. High sensitive to this. 10/31/22 22:08 10/31/22 22:08 Labs: Lab Results 10/31/22 Range/Units 22:08 WBC 11.1 H (4.8-10.8) X10*3/uL RBC 4.37 (4.20-5.50) X10*6/uL Hgb 11.9 L (12.0-16.0) g/dl Hct 37.1 (37.0-47.0) % MCV 84.9 (80.0-98.0) fL MCH 27.2 (27.0-33.0) pg MCHC 32.1 (31.0-35.0) g/dl RDW 13.0 (11.0-16.0) % Plt Count 279 (160-400) X10*3/uL MPV 10.6 (9.4-12.3) fL Absolute Nucleated RBC 0.000 (0.0-0.012) X10*3/uL Nucleated RBC % (auto) 0.0 (0.0-0.2) /100WBC Sodium 142 (135-145) mmol/L Potassium 3.8 (3.3-5.1) mmol/L Chloride 109 H (96-108) mmol/L Carbon Dioxide 27 (22-29) mmol/L Anion Gap 10 L (12-20) BUN 8 L (9-16) mg/dL Creatinine 0.80 (0.5-1.4) mg/dL Estim Creat Clear Calc 83.0 Estimated GFR > 60 Random Glucose 101 (60-115) mg/dL Calcium 9.2 (8.4-10.2) mg/dL Total Bilirubin 0.3 (0.0-1.0) mg/dL AST 13 (5-31) U/L ALT 18 (0-31) U/L Alkaline Phosphatase 57 (39-117) U/L Troponin I High Sens < 2.7 (<3.5-17.0) ng/L Total Protein 7.0 (6.5-8.0) g/dL Albumin 4.0 (3.5-5.0) g/dL Independent Interpretation I performed an independent interpretation of an: EKG Interpretation: 0051: My independent interpretation of the patient's 12 EKG done at 20:28 hours is as follows: Sinus rhythm with a rate of 95, normal VA interval, QRS duration QTC interval no ST segment elevation, no ST segment depression, inverted T-wave V1, flat T-wave lead 3, no PACs, no PVCs this is a normal EKG Prescription Management I considered prescription management with: Pain Medication Chronic Conditions Patient?s care impacted by: Diabetes and Other (Hypertension, hyperlipidemia, migraine syndrome) Discharge Plan Discharge Clinical Impression: Acute costochondritis Headache Qualifiers: Headache type: unspecified Headache chronicity pattern: acute headache I ntractability: not intractable Qualified Code(s): R51.9 - Headache, unspecified Patient Disposition: Home, Self-Care Instructions: Costochondritis (ED) Additional Instructions: Your blood work was normal pain Your EKG was unremarkable. You did have tenderness when I push on your left chest suggesting the have inflammation of the joints and muscles of the chest is the cause of your pain. Take ibuprofen 400 mg pills, 1 pills every 6 hours as needed for pain or fever. Follow-up with your doctor in 2 days. Please return to the emergency department if your symptoms get worse or if you develop any symptoms that are concerning to you. Prescriptions: New ibuprofen 400 mg tablet 400 mg PO TID PRN (Reason: fever or pain) Qty: 30 0RF No Action atorvastatin 10 mg tablet 10 mg PO DAILY Qty: 30 6RF famotidine 20 mg tablet 20 mg PO DAILY Qty: 30 6RF (DME) arm sling See Rx Instructions .Route .MEDSUPPLY Qty: 1 0RF Rx Instructions: for the right arm oxycodone-acetaminophen 5-325 mg tablet 1 tab PO Q6H PRN (Reason: pain) 2 Days Qty: 8 0RF Rx Instructions: Partial Fill upon patient request. (DME) Blood Pressure Cuff Misc See Rx Instructions .ROUTE .MEDSUPPLY Qty: 1 0RF Rx Instructions: As directed docusate sodium [Colace] 100 mg capsule 100 mg PO DAILY 30 Days Qty: 30 1RF miscellaneous medical supply Misc 1 ea miscellaneous DAILY 99 Days Qty: 1 0RF citalopram 20 mg tablet 20 mg PO DAILY sumatriptan succinate 25 mg tablet See Rx Instructions PO .COMPLEX Qty: 9 1RF Rx Instructions: take 1 tab at onset of headache; if no relief may repeat 1 tab after at least 2 hrs; max = 4 tabs/24 hr PO lidocaine 5 % adhesive patch,medicated 1 patch topical DAILY 30 Days Qty: 30 3RF Rx Instructions: leave on most painful area for up to 12 hrs amlodipine 10 mg tablet 10 mg PO DAILY 30 Days Qty: 30 4RF albuterol sulfate 2.5 mg /3 mL (0.083 %) solution for nebulization 2.5 mg inhalation Q4-6H PRN (Reason: shortness of breath or wheezing) 30 Days Qty: 90 3RF albuterol sulfate [Ventolin HFA] 90 mcg/actuation HFA aerosol inhaler 1 inh inhalation QID 30 Days Qty: 8.5 3RF cetirizine 10 mg tablet 10 mg PO DAILY Qty: 30 3RF Flovent HFA 110 mcg/actuation HFA aerosol inhaler 1 puff PO BID Qty: 12 3RF naproxen 500 mg tablet 500 mg PO BID Qty: 60 3RF bisacodyl [Dulcolax (bisacodyl)] 5 mg tablet,delayed release (DR/EC) 10 mg PO BEDTIME 30 Days Qty: 60 6RF simethicone 180 mg capsule 180 mg PO QID 30 Days Qty: 120 3RF Rx Instructions: after meals Print Language: [place] Citizen
[2022-11-01 01:27] VITALS: BP 139/70; PULSE 72; RESP 16; TEMP 36.8; O2SAT 98
[2022-11-01] MEDS: Ibuprofen 400 MG TABLET PO (01:45)
[2022-11-01 02:09] VITALS: BP 108/63; PULSE 64; RESP 16; TEMP 36.7; O2SAT 97
== END 2022-11-01 02:15 | disposition home or self-care (01) ==
PROVIDERS: Emergency Provider Emergency Medicine Emergency Medical Services; PCP Physician Assistant
DX: M94.0 Chondrocostal junction syndrome [Tietze] (principal); R07.9 Chest pain, unspecified; R51.9 Headache, unspecified; I10 Essential (primary) hypertension; E78.5 Hyperlipidemia, unspecified
CPT/HCPCS: 36415; 80053; 84484; 85027; 93005; 99283; 99285

== ENCOUNTER 2022-11-26 07:53 | Outpatient (AMB) | payer OTHER, SELFPAY ==
[2022-11-26 08:00] VITALS: BP 118/76; PULSE 75; O2SAT 98; BMI 28.9
--- NOTE | 2022-11-26 08:00 | A.OFFPC_ITS ---
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 Operator Language: Cypriot Accompanied by: Self / Same As Patient Allergies lisinopril Adverse Reaction (Intermediate, Verified 11/26/22 08:10) Cough Medication List - Last Reconciled 11/26/22 by Reynaldo Santana PA-C albuterol sulfate 2.5 mg (3 mL) inhalation Q4-6H PRN 30 days albuterol sulfate 90 mcg/actuation (Ventolin HFA) 1 inh inhalation QID 30 days amlodipine 10 mg PO DAILY 30 days [arm sling for the right arm] atorvastatin 10 mg PO DAILY bisacodyl (Dulcolax (bisacodyl)) 10 mg (2 x 5 mg) PO BEDTIME 30 days cetirizine 10 mg PO DAILY citalopram 20 mg PO DAILY docusate sodium (Colace) 100 mg PO DAILY 30 days famotidine 20 mg PO DAILY fluticasone propionate 110 mcg/actuation (Flovent HFA) 1 puff PO BID ibuprofen 400 mg PO TID PRN lidocaine 5% 1 patch topical DAILY 30 days miscellaneous medical supply (Blood Pressure Cuff) As directed miscellaneous medical supply 1 ea miscellaneous DAILY 99 days naproxen 500 mg PO BID simethicone 180 mg PO QID 30 days sumatriptan succinate take 1 tab at onset of headache; if no relief may repeat 1 tab after at least 2 hrs; max = 4 tabs/24 hr PO Tobacco use date assessed: 11/26/22 Dental Screening Dental Screen Date: 11/26/22 Did you have a dental visit in the last 12 months?: No Did you have a dental problem in the last 6 months where you did not have access to dental care?: No Was dental information given to patient?: Patient has dentist HPI Annual Exam 2 HPI0 Details Patient is a 47-year-old female here today for routine annual physical. ?.Patient has a past medical history significant for asthma, hyperlipidemia, lumbar disc disease, hypertension,, MDD. Concern--> reports he she continues to have a right wrist hyperpigmentation of the skin that she would like evaluated possible biopsy. Carpal tunnel syndrome: Has gotten surgery with orthopedics though still has pain and swelling in her hands . Has started on occupational therapy for her hand and wrist pain which has been helpful She reports gabapentin has been helpful Chronic medical conditions--> Thyroid nodule:? Patient did have recent ultrasound of thyroid showing a left solitary thyroid nodule. .. HTN:?? She does report home blood pressures are 140s to 150 systolic.? ?Continues on current doses of her blood pressure medications.? Denies any headaches, chest pains, shortness of breath. .. Lumbar disc disease:? Patient continues to have moderate lumbar spine pain.? She is followed by a collections specialist and has received a lumbar injection which she reports helped reduce some of her pain. Currently her pain is well managed with the injections and p.r.n. use of naproxen. Depression:? Now speaking to mental health therapist and a psychiatrist, continues on SSRI therapy with good effect ?Currently not on any mental health medications.? 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 Colonoscopy: Done in February 2022, normal repeat 10 years Mammogram: Done in April of 2022- BI-RADS 2 Vaccines: Up-to-date with COVID vaccine, pneumonia vaccine, declines flu shot Laboratory Tests 05/26/21 05/22/22 10/31/22 15:52 10:49 22:08 WBC 13.0 H RBC 4.37 Cholesterol 210 10/31/22 22:08 WBC 11.1 H RBC Cholesterol PFSH Medical History Depression Migraines Lumbar disc disease GERD (gastroesophageal reflux disease) Elevated cholesterol HTN (hypertension) Asthma Surgical History History of carpal tunnel surgery Tubal ligation status H/O: hysterectomy Family History Father Cancer Diabetes Heart problem AD (Alzheimer's disease) Mother Arthritis High blood pressure Other Mental problem Substance abuse Social History Housing: Apartment Alcohol intake: never Patient Tobacco Use Status: Never used Tobacco e-Cigarette/Vaping Use: Never Used Second Hand Smoke Exposure: Yes service: No Current occupational status: unemployed 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 Rob Leigh, Judith Carcamo, Rick Ortega and colleagues, with an educational varghese from [employer]. ACT Questionnaire In the past 4 weeks, how much of the time did your asthma keep you from getting as much done at work, school or at home?: A little of the time During the past 4 weeks, how often have you had shortness of breath?: 1-2 times a week During the past 4 weeks, how often did your asthma symptoms wake you up at night or earlier than usual in the morning?: Not at all During the past 4 weeks, how often have you had to use your rescue inhaler or nebulizer medication?: Not at all How would you rate your asthma control during the past 4 weeks?: Well controlled ACT Interpretation: Negative Score: 22 Review of Systems Const Denies body aches, Denies chills, Denies excessive sweating, Denies fatigue, Denies fever(s) and Denies headache(s) Eyes Denies blurry vision ENT Denies dysphagia, Denies vertigo, Denies dizziness, Denies headache(s), Denies hearing loss and Denies tinnitus Card Denies chest pain, Denies chest pain with activity, Denies syncope, Denies irregular heart rhythm and Denies dyspnea Resp Denies chest congestion, Denies cough, Denies hemoptysis, Denies dyspnea and Denies wheezing GI Denies abdominal pain, Denies melena, Denies hematochezia, Denies coffee ground emesis, Denies dysphagia, Denies diarrhea, Denies nausea and Denies vomiting Denies urinary frequency, Denies dysuria, Denies urinary hesitancy and Denies urinary urgency Musc Denies arthralgias, Denies limited range of motion, Denies muscle cramps and Denies muscle weakness Skin/Breast Denies rash and Denies skin ulcer Neuro Denies Abnormal speech present, Denies confusion, Denies vertigo, Denies dizziness, Denies syncope, Denies headache(s), Denies memory loss and Denies seizure-like activity Psych Denies anxiety, Denies confusion, Denies depression, Denies memory loss, Denies panic attacks and Denies paranoia Endo Denies excessive sweating, Denies fatigue, Denies flushing, Denies polydipsia and Denies polyuria Aller/Immun Denies wheezing Physical exam (Primary Care) Vital Signs: Last Vital Signs Pulse 75 11/26/22 08:00 BP 118/76 11/26/22 08:00 Pulse Ox 98 11/26/22 08:00 Oxygen Delivery Method Room Air 11/26/22 08:00 BMI result Body Mass Index 28.9 Tobacco/Smoking Status: Tobacco use Status Tobacco use date assessed 11/26/22 11/26/22 08:08 Patient Tobacco Use Status Never used Tobacco 11/26/22 08:08 e-Cigarette/Vaping Use Never Used 11/26/22 08:08 Thrive Assessment: Date of Thrive Assessment Date Thrive assessed 05/27/22 11/26/22 08:08 Const General: cooperative, comfortable, no acute distress, alert and awake; No confusion Orientation/consciousness: oriented to person, oriented to place, patient oriented x3 and No confusion HENMT Head: Yes normocephalic Ears: external ears normal and TM's normal bilaterally Face and sinus: No sinus tenderness Mouth: Normal oral and palatal mucosa present and tongue normal Teeth and gingiva: dentition normal and gingiva normal Throat: Yes posterior oropharynx normal, Yes tonsils normal and Yes uvula midline Eyes Conjunctivae: conjunctivae normal Sclerae: sclerae normal Pupils: Equal, round and reactive pupils present EOM: EOMs intact bilaterally Direct Ophthalmoscopy: No no photophobia Neck Neck: Yes no lymphadenopathy, No tender and Yes no JVD Thyroid: Thyroid normal Carotids: no bruits Chest Chest palpation & inspection: no tenderness Resp Effort & Inspection: normal respiratory effort, no audible wheezes, not labored and no stridor Auscultation: no crackles, no rales, no rhonchi and no wheezes Cardio Jugular venous distension: no JVD Rate: regular rate, not bradycardic and not tachycardic Rhythm: regular rhythm Bruits: no carotid bruits Peripheral pulses: Peripheral pulses 2+ throughout GI Inspection: Yes normal to inspection, No abdominal wall ecchymosis and No visible herniation Palpation (GI): Soft to palpation, nontender, no guarding, not rigid and No hepatosplenomegaly present Auscultation: normoactive bowel sounds General: Yes no CVA tenderness Back/Spine/Pelvis Back: no CVA tenderness and No back tenderness Cervical Spine: cervical ROM normal Thoracic/Lumbar Spine: thoracic and lumbar spine normal to inspection, straight leg raise negative bilaterally, No thoraco-lumbar ROM limited and No lumbar spinal tenderness Skin Lesions: no lesions Rashes: no rashes Wounds: no wounds Neuro General: oriented to person, oriented to place, patient oriented x3, CN's II-XI intact bilaterally and No confusion Cranial nerves: Yes Equal, round and reactive pupils present and Yes Normal accommodation reflex present Cognition (Neuro): normal cognition Speech: No Abnormal speech present Gait exam (Neuro): Normal gait present Motor exam (neuro): 5/5 motor strength present throughout Extrem Right upper extremity: full ROM; no cyanosis Left upper extremity: full ROM; no cyanosis Hand/finger images: 2 1. LARGE FLAT AREA OF HYPERPIGMENTED SKIN. Right lower extremity: no edema Left lower extremity: no edema Psych Appearance: grossly normal Mental Status: mental status grossly normal Affect: normal affect Attitude: cooperative Thought process: Normal thought process present Office Procedures Flu Questionnaire Does the patient have a severe egg allergy?: No Immunizations flu vacc [id number] 6mos up(PF) 60 mcg(15 mcgx4)/0.5 mL IM syringe Performing Provider: Reynaldo Santana PA-C [facility] Documented (not given) by: ITA Parker on 11/26/22 08:09 Reason Not Given: Patient Refused Assessment and Plan Assessment & Plan (1) Annual physical exam: Code(s): Z00.00 - Encounter for general adult medical examination without abnormal findings (2) HTN (hypertension): Code(s): I10 - Essential (primary) hypertension Qualifiers: Hypertension type: essential hypertension Qualified Code(s): I10 - Essential (primary) hypertension Plan: Patient's blood pressure acceptable today in office. Will continue current dose of amlodipine with goal blood pressure be below 140/90 (3) HLD (hyperlipidemia): Code(s): E78.5 - Hyperlipidemia, unspecified Qualifiers: Hyperlipidemia type: mixed hyperlipidemia Qualified Code(s): E78.2 - Mixed hyperlipidemia Plan: Patient continues on low-dose statin therapy, most recent fasting cholesterol panel showing appropriate LDL and total cholesterol. (4) Asthma: Code(s): J45.909 - Unspecified asthma, uncomplicated Qualifiers: Asthma complication type: uncomplicated Asthma persistence: persistent Asthma severity: mild Qualified Code(s): J45.30 - Mild persistent asthma, uncomplicated Plan: Patient's asthma has been well controlled with p.r.n. use of albuterol inhaler. Denies any nighttime awakenings with asthma symptoms or recent asthma exacerbations. (5) MDD (major depressive disorder), recurrent episode, moderate: Code(s): F33.1 - Major depressive disorder, recurrent, moderate Plan: Patient continues to follow a therapist and a psychiatrist. Continues on citalopram 20 mg with good effect on reducing her depressive mood. (6) Lumbar disc disease: Code(s): M51.9 - Unspecified thoracic, thoracolumbar and lumbosacral intervertebral disc disorder Plan: Has chronic lumbar spine pain to which she uses lumbar support brace. She is followed by a collections specialist who gives her cortisone injections which he reports relieves her pain somewhat. (7) Median nerve neuropathy: Code(s): G56.10 - Other lesions of median nerve, unspecified upper limb Qualifiers: Laterality: right Qualified Code(s): G56.11 - Other lesions of median nerve, right upper limb Plan: Patient's most recent EMG showing bilateral moderate median nerve neuropathy. Underwent carpal tunnel release. Unfortunately continues to have hand pain and swelling. Has been doing occupational therapy which has been helpful. She would like to restart using gabapentin 100 mg which has been helpful in the past. She is interested in speaking with hand surgeon about carpal tunnel release. Advised on use of hand and wrist splint at night to reduce her neuropathic symptoms (8) Hyperpigmentation: Code(s): L81.9 - Disorder of pigmentation, unspecified Plan: Would like the hyperpigmentation over right wrist evaluated by dermatology. Orders: Orders 2 Microalbumin, Random (w Creat) Today I10 - Essential (primary) hypertension Lipid Panel Today E78.2 - Mixed hyperlipidemia MM screening mammo BI Today Z12.31 - Encounter for screening mammogram for malignant neoplasm of breast Influenza [id number] Immunization Today Z23 - Encounter for immunization Complete Blood Count no Diff Today J45.30 - Mild persistent asthma, uncomplicated TSH reflex Free T4 Today E04.1 - Nontoxic single thyroid nodule Comprehensive [place]. Panel Fast Today E78.2 - Mixed hyperlipidemia Referrals 2 Dermatology Referral L30.9 - Dermatitis, unspecified, L81.9 - Disorder of pigmentation, unspecified Medications: New 2 gabapentin 100 mg PO DAILY 90 days 90 caps 2RF G56.03 - Carpal tunnel syndrome, bilateral upper limbs triamcinolone acetonide 0.1% 1 appl topical DAILY 30 days 80 grams 1RF L30.9 - Dermatitis, unspecified Changed 2 From atorvastatin 10 mg PO DAILY 30 tabs 6RF E78.2 - Mixed hyperlipidemia To atorvastatin 10 mg PO DAILY 90 days 90 tabs 2RF E78.2 - Mixed hyperlipidemia From docusate sodium (Colace) 100 mg PO DAILY 30 days 30 caps 1RF K59.00 - Constipation, unspecified To docusate sodium (Colace) 100 mg PO DAILY 90 days 90 caps 1RF K59.00 - Constipation, unspecified From amlodipine 10 mg PO DAILY 30 days 30 tabs 4RF I10 - Essential (primary) hypertension To amlodipine 10 mg PO DAILY 90 days 90 tabs 2RF I10 - Essential (primary) hypertension Refilled 2 cetirizine 10 mg PO DAILY 30 tabs 3RF J45.30 - Mild persistent asthma, uncomplicated sumatriptan succinate take 1 tab at onset of headache; if no relief may repeat 1 tab after at least 2 hrs; max = 4 tabs/24 hr PO 9 tabs 1RF G43.009 - Migraine without aura, not intractable, without status migrainosus fluticasone propionate 110 mcg/actuation (Flovent HFA) 1 puff PO BID 12 grams 3RF J45.30 - Mild persistent asthma, uncomplicated albuterol sulfate 90 mcg/actuation (Ventolin HFA) 1 inh inhalation QID 30 days 8.5 grams 3RF J45.30 - Mild persistent asthma, uncomplicated albuterol sulfate 2.5 mg (3 mL) inhalation Q4-6H 30 days PRN 90 mL 3RF shortness of breath or wheezing J45.30 - Mild persistent asthma, uncomplicated simethicone after meals 180 mg PO QID 30 days 120 caps 3RF K21.9 - Gastro-esophageal reflux disease without esophagitis famotidine 20 mg PO DAILY 30 tabs 6RF K21.9 - Gastro-esophageal reflux disease without esophagitis ibuprofen 400 mg PO TID PRN 30 tabs 0RF fever or pain lidocaine 5% leave on most painful area for up to 12 hrs 1 patch topical DAILY 30 days 30 ea 3RF M48.061 - Spinal stenosis, lumbar region without neurogenic claudication bisacodyl (Dulcolax (bisacodyl)) 10 mg (2 x 5 mg) PO BEDTIME 30 days 60 tabs 6RF K59.04 - Chronic idiopathic constipation Coding Level of Care Code Est Pt Prev Care 40-64y(21849) Diagnoses Annual physical exam Z00.00 Essential hypertension I10 Hypertension type: essential hypertension Mixed hyperlipidemia E78.2 Hyperlipidemia type: mixed hyperlipidemia Mild persistent asthma without complication J45.30 Asthma complication type: uncomplicated Asthma persistence: persistent Asthma severity: mild MDD (major depressive disorder), recurrent episode, moderate F33.1 Lumbar disc disease M51.9 Right median nerve neuropathy G56.11 Laterality: right Hyperpigmentation L81.9
== END 2022-11-26 08:51 | disposition home or self-care (01) ==
PROVIDERS: PCP Physician Assistant; Visit Provider Physician Assistant
DX: Z00.00 Encounter for general adult medical examination without abnormal findings (principal); I10 Essential (primary) hypertension; G43.909 Migraine, unspecified, not intractable, without status migrainosus; F33.1 Major depressive disorder, recurrent, moderate; M51.9 Unspecified thoracic, thoracolumbar and lumbosacral intervertebral disc disorder; G56.11 Other lesions of median nerve, right upper limb; L81.9 Disorder of pigmentation, unspecified
CPT/HCPCS: 99396

== ENCOUNTER 2022-12-02 13:00 | Outpatient (RCR) | payer OTHER, SELFPAY ==
--- NOTE | 2022-10-12 14:41 | MHC.OT.EP ---
[address] [phone] Occupational Therapy Plan of Care Patient Name: Mya Mccann Date of Evaluation: 10/12/22 Diagnosis: CTS, B/L UPPER LIMBS; POST OP R CTR Pain Location: R VOLAR WRIST Pain Score: 5-8/10 Pain Scale Used: Numeric (0 - 10) Aggravating Factors: SLEEPING, LIFTING HEAVY ITEMS Alleviating Factors: USING ICE, MASSAGES, NAPROXEN, IBUPROFEN, VOLTAREN Assessment: MS LORENE MCCANN IS 12 WEEKS POST OP R CTR WITH DR CASTANON. SHE IS REPORTING HIGH PAIN WITH DAILY USE, INCLUDING HOUSEHOLD TASKS AND LIFTING >8 POUNDS. ONGOING SYMPTOMS OF NUMBNESS AND TINGLING, YET REPORTS MILD IMPROVEMENTS IN R. HER WRIST ROM IS WFL, YET STRENGTH IS LOW. A 63% LIMITATION IS REPORTED PER THE QUICK DASH ASSESSMENT. ONGOING SKILLED OT IS WARRANTED TO ADDRESS DESENSITIZATION, EDEMA MANAGEMENT, FUNCTIONAL USE WITH ADLs AND IADLs, DEXTERITY AND STRENGTH. Frequency and Duration: The patient will be seen 2X/WEEK FOR 5 WEEKS Short Term Goals: IND HEP IND EDEMA MANAGEMENT IND WITH ADL CLOSURE BOARD AND FINE MOTOR TASKS REPORT <3/10 PAIN AT REST AND LIGHT ADLs IND JT PROTECTION AND ACTIVITY MODIFICATION Utility Driver Goals: TOLERATE VARIOUS TEXTURES OF ROUGH, VIBRATION, ETC FOR >8 MINS QUICK DASH <40% IND SELF MANAGEMENT OF LUE CTS R GRASP >50 POUNDS REPORT <4/10 PAIN WITH LIFTING >10 POUNDS AND DURING IADLs REPORT MILD DIFFICULTIES WITH SLEEPING Treatment Plan: Therapeutic Exercise Therapeutic Activity Home Exercise Program Splinting Neuro Re-ed Patient Education Desensitization/Sensory Re-ed Edema Control ADL Training Ultrasound NMES Iontophoresis Paraffin Fluidotherapy MHP Cold Packs Joint Mobilization Soft Tissue Mobilization Kinesiotaping Other (see comments) Pt REPORTS PREFERENCE TO ATTENDING OT 1X/WEEK DUE TO SCHEDULE/ APPOINTMENT CONFLICTS Electronically Signed By: JULIO WEEKS OTR/L Please Sign and return to therapist. Thank you once again for your referral.
--- NOTE | 2022-12-02 13:50 | MHC.OT.DC ---
[address] [phone] F: [phone] Occupational Therapy Discharge Note Patient Name: Mya Mccann Provider: Annabelle Liz Diagnosis: CTS, B/L UPPER LIMBS POST OP R CTR Date of Surgery: 07/27/22 Date of Evaluation: 10/12/22 Date of Discharge: 12/02/22 Treatments to Date: 8 Cancellations to Date: 0 No Shows to Date: 0 Discharge Status: Improved Function Independent with HEP Recommend MD Follow-up Discharge Summary: MS LORENE MCCANN HAS BEEN MOTIVATED AND COOPERATIVE WITH HER OT RX SESSIONS. ALTHOUGH, HER PAIN AND PARASTHESIA WERE MOSTLY UNCHANGED, SHE IMPROVED HER STRENGTH AND DECREASED HER HYPERSENSITIVITY IN HER RUE. Pt WAS EDUCATED ON SCAR MOBILIZATION, EDEMA MANAGEMENT, ORTHOSIS USE, AND ACTIVITY MODIFICATION. Pt IS IND WITH HER HEP, NO FUTHER OT WARRANTED AT THIS TIME. Electronically Signed By: JULIO WEEKS OTR/L Reviewed/agree with student documentation: N/A Therapist: Please Sign and return to therapist, thank you for your referral.
== END 2022-12-02 13:55 | disposition home or self-care (01) ==
LOC: HO.OT 13:00
PROVIDERS: PCP Physician Assistant; Visit Provider Orthopaedic Surgery
DX: G56.03 Carpal tunnel syndrome, bilateral upper limbs (principal)
CPT/HCPCS: 97035; 97110; 97112; 97140; 97166; 97530

== ENCOUNTER 2023-04-19 13:43 | Outpatient (REF) | payer OTHER, SELFPAY | END 2023-04-19 13:44 | disposition home or self-care (01) | LOC: HO.MAMMO 13:43 | PROVIDERS: PCP Physician Assistant; Visit Provider Physician Assistant | DX: Z12.31 Encounter for screening mammogram for malignant neoplasm of breast (principal) | CPT/HCPCS: 77063; 77067 ==

== ENCOUNTER → 2023-04-19 13:45 | Outpatient (BNV) | payer OTHER, SELFPAY | PROVIDERS: PCP Physician Assistant; Visit Provider Radiology Diagnostic Radiology | DX: Z12.31 Encounter for screening mammogram for malignant neoplasm of breast (principal) | CPT/HCPCS: 77063; 77067 ==

== ENCOUNTER 2023-05-31 09:36 | Outpatient (AMB) | payer OTHER, SELFPAY ==
--- NOTE | 2023-05-31 10:03 | A.OFFPC_ITS ---
Vital Signs 05/31/23 10:06 Height 5 ft 3 in Weight 169 lb 4 oz BMI 30.0 BP 148/86 H Blood Pressure Location Lt brachial Position Sitting Pulse 74 Pulse Source Pulse Oximeter Pulse Oximetry (%) 98 Oxygen Delivery Method Room Air Intake Visit Reasons: f/u HtN/ HLD / hand pain Transportation Department Head Required: Yes Transportation Department Head Language: Mongolian Accompanied by: Self / Same As Patient Allergies lisinopril Adverse Reaction (Intermediate, Verified 05/31/23 10:22) Cough Medication List - Last Reconciled 05/31/23 by Reynaldo Santana PA-C albuterol sulfate 90 mcg/actuation (Ventolin HFA) 1 inh inhalation QID 30 days albuterol sulfate 2.5 mg (3 mL) inhalation Q4-6H PRN 30 days amlodipine 10 mg PO DAILY 90 days [arm sling for the right arm] atorvastatin 10 mg PO DAILY 90 days bisacodyl (Dulcolax (bisacodyl)) 10 mg (2 x 5 mg) PO BEDTIME 30 days buspirone 5 mg PO BID cetirizine 10 mg PO DAILY citalopram 20 mg PO DAILY docusate sodium (Colace) 100 mg PO DAILY 90 days famotidine 20 mg PO DAILY fluticasone propionate 110 mcg/actuation 1 puff PO BID gabapentin 100 mg PO DAILY 90 days ibuprofen 400 mg PO TID PRN lidocaine 5% 1 patch topical DAILY 30 days miscellaneous medical supply (Blood Pressure Cuff) As directed miscellaneous medical supply 1 ea miscellaneous DAILY 99 days simethicone 180 mg PO QID 30 days triamcinolone acetonide 0.1% 1 appl topical DAILY 30 days Tobacco use date assessed: 05/31/23 Dental Screening Dental Screen Date: 11/26/22 HPI f/u HtN/ HLD / hand pain HPI Details Patient is a 48-year-old female here today for a follow-up visit. ?.Patient has a past medical history significant for asthma, hyperlipidemia, lumbar disc disease, hypertension,, MDD. Concern--> reports some dizziness, memory issues along with her increased anxiety. She is asking for some head imaging as she is concerned about a family history of Alzheimer's as well. Carpal tunnel syndrome: Has gotten surgery with orthopedics though still has pain and swelling in her hands . Has started on occupational therapy for her hand and wrist pain which has been helpful She reports gabapentin has been helpful Chronic medical conditions--> Thyroid nodule:? Patient did have recent ultrasound of thyroid showing a left solitary thyroid nodule. .. HTN:?? She does report home blood pressures are 140s to 150 systolic.? ?Continues on current doses of her blood pressure medications.? Denies any headaches, chest pains, shortness of breath. .. Lumbar disc disease:? Patient continues to have moderate lumbar spine pain.? She is followed by a [facility] specialist and has received a lumbar injection which she reports helped reduce some of her pain. Currently her pain is well managed with the injections and p.r.n. use of naproxen. Depression/ anxiety:? Now speaking to mental health therapist and a psychiatrist, continues on SSRI therapy with good effect. Has started who anxiety medication ?? 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 [facility] Medical History Depression Migraines Lumbar disc disease GERD (gastroesophageal reflux disease) Elevated cholesterol HTN (hypertension) Asthma Surgical History History of carpal tunnel surgery Tubal ligation status H/O: hysterectomy Family History Father Cancer Diabetes Heart problem AD (Alzheimer's disease) Mother Arthritis High blood pressure Other Mental problem Substance abuse Social History Housing: Apartment Alcohol intake: never Patient Tobacco Use Status: Never used Tobacco e-Cigarette/Vaping Use: Never Used Second Hand Smoke Exposure: Yes service: No Current occupational status: unemployed 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 1. Little interest or pleasure in doing things: several days 2. Feeling down, depressed, or hopeless: several days 3. Trouble falling or staying asleep, or sleeping too much: more than half the days 4. Feeling tired or having little energy: more than half the days 5. Poor appetite or overeating: more than half the days 6. Feeling bad about yourself - or that you are a failure or have let yourself or your family down: several days 7. Trouble concentrating on things, such as reading the newspaper or watching television: more than half the days 8. Moving or speaking so slowly that other people could have noticed. Or the opposite - being so fidgety or restless that you have been moving around a lot more than usual: more than half the days 9. Thoughts that you would be better off or of hurting yourself in some way: not at all Total score: 13 Depression Screening Interpretation: Positive Depression Screening Follow-up: Existing condition and In treatment Depression Screening Done: Yes 36218 - PHQ-9 Billing: Yes Source: Developed by Drs. Rob Leigh, Judith Carcamo, Rick Ortega and colleagues, with an educational varghese from [employer]. Thrive Questionnaire Date Thrive assessed: 05/31/23 I am a: Patient What is your living situation today?: I have a place to live, but I am worried about losing it in the future Within the past 12 months, did the food you bought not last and you didn't have the money to get more?: Never true Within the past 12 months, did you worry whether your food would run out before you got money to buy more?: Never true Do you have trouble paying for medicines?: Yes Do you have trouble getting transportation to medical appointments?: No Do you have trouble paying your heating and electricity bill?: No Do you have trouble taking care of your child, family member or friend?: No Do you have trouble with day-to-day activities such as bathing, preparing meals, shopping, managing finances, etc.?: No Are you currently unemployed and looking for a job?: No Are you interested in more education?: No Please select the resources that you would like help with: None THRIVE Score: 1 ROB-7 AMB Questionnaire ROB-7 Date ROB - 7 assessed: 05/31/23 Feeling nervous, anxious, or on edge: 3 = Nearly every day Not being able to stop or control worryin = More than half the days Worrying too much about different things: 3 = Nearly every day Trouble relaxin = More than half the days Being so restless that it is hard to sit still: 3 = Nearly every day Becoming easily annoyed or irritable: 1 = Several days Feeling afraid as if something awful might happen: 2 = More than half the days Total ROB-7 score (0-4 normal; 5-9 mild; 10-14 moderate; 15-21 severe): 16 Source: Developed by Drs. Rob Leigh, Judith Carcamo, Rick Ortega and colleagues, with an educational varghese from [employer]. ROB-7 Assessment Billing ROB-7 Assessment Tool: ROB-7 Assessment 49114 Review of Systems Const Denies headache(s) Eyes Denies loss of vision ENT Denies vertigo, Denies dizziness, Denies headache(s) and Denies sore throat Card Denies chest pain, Denies leg edema and Denies lightheadedness Resp Denies cough, Denies hemoptysis and Denies wheezing GI Denies abdominal pain, Denies melena, Denies constipation, Denies diarrhea and Denies vomiting Denies urinary frequency, Denies dysuria and Denies urinary urgency Musc Denies arthralgias, Denies joint swelling, Denies numbness and Denies tingling Neuro Denies Abnormal speech present, Denies behavioral changes, Denies vertigo, Denies dizziness, Denies headache(s), Denies loss of vision, Denies memory loss, Denies numbness and Denies tingling Psych Denies anxiety, Denies behavioral changes, Denies depression, Denies memory loss and Denies panic attacks Josh/Lymph Denies easy bleeding and Denies easy bruising Aller/Immun Denies wheezing Physical exam (Primary Care) Vital Signs: Last Vital Signs Pulse 74 05/31/23 10:06 BP 148/86 H 05/31/23 10:06 Pulse Ox 98 05/31/23 10:06 Oxygen Delivery Method Room Air 05/31/23 10:06 BMI result Body Mass Index 30.0 Tobacco/Smoking Status: Tobacco use Status Tobacco use date assessed 05/31/23 05/31/23 10:15 Patient Tobacco Use Status Never used Tobacco 05/31/23 10:05 e-Cigarette/Vaping Use Never Used 05/31/23 10:05 PHQ-9: PHQ-9 Score PHQ-9: Total score 13 05/31/23 10:26 Depression Screening Interpretation: Positive Depression Screening Follow-up: Existing condition and In treatment Thrive Assessment: Date of Thrive Assessment Date Thrive assessed 05/31/23 05/31/23 10:15 Const General: healthy appearing, no acute distress, alert and awake Nutritional Appearance: well nourished Orientation/consciousness: oriented to person, oriented to place and oriented to time HENMT Ears: TM's normal bilaterally General nose exam: Normal nasal mucous membranes and turbinates present Eyes Conjunctivae: conjunctivae normal Sclerae: sclerae normal Pupils: Equal, round and reactive pupils present Neck Neck: Yes no lymphadenopathy and Yes no JVD Thyroid: Thyroid normal Carotids: no bruits Resp Effort & Inspection: normal respiratory effort and not tachypneic Auscultation: no crackles, no rales, no rhonchi and no wheezes Cardio Rate: regular rate Rhythm: regular rhythm Heart sounds: no murmurs and normal S1 and S2 GI Palpation (GI): Soft to palpation, nontender, no hepatomegaly and no splenomegaly Auscultation: normal bowel sounds Skin General skin exam: no rashes or lesions noted and dry skin Neuro General: oriented to person, oriented to place and oriented to time Cranial nerves: Yes Equal, round and reactive pupils present Speech: No Abnormal speech present Gait exam (Neuro): Normal gait present Motor exam (neuro): no tremor noted Extrem Right upper extremity: full ROM Left upper extremity: full ROM Right lower extremity: full ROM; no edema Left lower extremity: full ROM; no edema Psych Mental Status: mental status grossly normal Speech and movement: Normal speech and movement present Affect: normal affect Attitude: cooperative Thought process: Normal thought process present Assessment and Plan Assessment & Plan (1) HTN (hypertension): Code(s): I10 - Essential (primary) hypertension Qualifiers: Hypertension type: essential hypertension Qualified Code(s): I10 - Essential (primary) hypertension Plan: Patient's blood pressure elevated today in office. She reports she is somewhat more anxious believes this is the reason her blood pressure is elevated. Will continue current dose of amlodipine with goal blood pressure be below 140/90 (2) HLD (hyperlipidemia): Code(s): E78.5 - Hyperlipidemia, unspecified Qualifiers: Hyperlipidemia type: mixed hyperlipidemia Qualified Code(s): E78.2 - Mixed hyperlipidemia Plan: Patient continues on low-dose statin therapy, most recent fasting cholesterol panel showing appropriate LDL and total cholesterol. (3) Asthma: Code(s): J45.909 - Unspecified asthma, uncomplicated Qualifiers: Asthma complication type: uncomplicated Asthma persistence: persistent Asthma severity: mild Qualified Code(s): J45.30 - Mild persistent asthma, uncomplicated Plan: Patient's asthma has been well controlled with p.r.n. use of albuterol inhaler. Denies any nighttime awakenings with asthma symptoms or recent asthma exacerbations. (4) MDD (major depressive disorder), recurrent episode, moderate: Code(s): F33.1 - Major depressive disorder, recurrent, moderate Plan: Patient continues to follow a therapist and a psychiatrist. Recently started on BUSPAR for her anxiety. Continues on citalopram 20 mg with good effect on reducing her depressive mood. (5) Lumbar disc disease: Code(s): M51.9 - Unspecified thoracic, thoracolumbar and lumbosacral intervertebral disc disorder Plan: Has chronic lumbar spine pain to which she uses lumbar support brace. She is followed by a [facility] specialist who gives her cortisone injections which he reports relieves her pain somewhat. She is interested in starting physical therapy again (6) Median nerve neuropathy: Code(s): G56.10 - Other lesions of median nerve, unspecified upper limb Qualifiers: Laterality: right Qualified Code(s): G56.11 - Other lesions of median nerve, right upper limb Plan: Patient's most recent EMG showing bilateral moderate median nerve neuropathy. Underwent carpal tunnel release. Unfortunately continues to have hand pain and swelling. Has been doing occupational therapy which has been helpful. She would like to restart using gabapentin 100 mg which has been helpful in the past. She is interested in speaking with hand surgeon about carpal tunnel release. Advised on use of hand and wrist splint at night to reduce her neuropathic symptoms Orders: Orders Microalbumin, Random (w Creat) Today I10 - Essential (primary) hypertension Comprehensive Kerrick. Panel Fast Today I10 - Essential (primary) hypertension Lipid Panel Today E78.2 - Mixed hyperlipidemia Complete Blood Count no Diff Today J45.30 - Mild persistent asthma, uncomplic ated TSH reflex Free T4 Today E04.1 - Nontoxic single thyroid nodule PT Evaluation and Treatment Today M48.061 - Spinal stenosis, lumbar region wi thout neurogenic claudication, M51.9 - Unspecified thoracic, thoracolumbar and lumbosacral intervertebral disc disorder Medications: Refilled amlodipine 10 mg PO DAILY 90 tabs 2RF 90 days I10 - Essential (primary) hypertension gabapentin 100 mg PO DAILY 90 caps 2RF 90 days G56.03 - Carpal tunnel syndrome, bilateral upper limbs Patient Instructions: Goals: Controlling her anxiety and monitoring his blood pressure more often, losing weight, starting physical therapy for her back pain. Barriers: Staying compliant on monitoring blood pressure, lumbar spine chronic pain making it difficult for her to be physically active to lose weight. Coding Level of Care Code Est Pt Level 4 (38571) Diagnoses Essential hypertension I10 Hypertension type: essential hypertension Mixed hyperlipidemia E78.2 Hyperlipidemia type: mixed hyperlipidemia Mild persistent asthma without complication J45.30 Asthma complication type: uncomplicated Asthma persistence: persistent Asthma severity: mild MDD (major depressive disorder), recurrent episode, moderate F33.1 Lumbar disc disease M51.9 Right median nerve neuropathy G56.11 Laterality: right Additional Codes ROB-7 Assessment Billing - ROB-7 Assessment Tool: ROB-7 Assessment 41895 ([id number])
[2023-05-31 10:06] VITALS: BP 148/86; PULSE 74; O2SAT 98
== END 2023-05-31 10:44 | disposition home or self-care (01) ==
PROVIDERS: PCP Physician Assistant; Visit Provider Physician Assistant
DX: I10 Essential (primary) hypertension (principal); E78.2 Mixed hyperlipidemia; F33.1 Major depressive disorder, recurrent, moderate; J45.30 Mild persistent asthma, uncomplicated; M51.9 Unspecified thoracic, thoracolumbar and lumbosacral intervertebral disc disorder; G56.11 Other lesions of median nerve, right upper limb
CPT/HCPCS: 99214

== ENCOUNTER 2023-05-31 10:52 | Outpatient (REF) | payer OTHER, SELFPAY ==
[2023-05-31 11:30] LABS: Hematocrit 38.2 % (37.0-47.0); Mean Corpuscular HGB Conc 31.4 g/dl (31.0-35.0); Mean Platelet Volume 10.8 fL (9.4-12.3); Platelet Count 322 X10*3/uL (160-400); Red Blood Count 4.44 X10*6/uL (4.20-5.50); Red Cell Distribution Width 13.2 % (11.0-16.0); White Blood Count 9.1 X10*3/uL (4.8-10.8)
[2023-05-31 12:29] LABS: Creatinine Urine 150.86 mg/dL; Microalbum/Creatinine Ratio Ur 5.3 ug/mg cr (<30)
[2023-05-31 12:34] LABS: Alanine Aminotransferase 19 U/L (0-31); Alkaline Phosphatase 61 U/L (39-117); Anion Gap 9 (12-20); Aspartate Amino Transferase 13 U/L (5-31); Bilirubin Total 0.6 mg/dL (0.0-1.0); Blood Urea Nitrogen 9 mg/dL (9-16); Carbon Dioxide 26 mmol/L (22-29); Chloride 108 mmol/L (96-108); Cholesterol 202 mg/dL (<200); Estimated Glomerular Filt Rate > 60; Glucose Fasting 110 mg/dL (60-99); HDL Cholesterol 41 mg/dL (>40); LDL Cholesterol Calculated 144 mg/dL (<100); Potassium 4.3 mmol/L (3.3-5.1); Sodium 139 mmol/L (135-145); Total Protein 7.1 g/dL (6.5-8.0); Triglycerides 88 mg/dL (<150)
[2023-05-31 12:38] LABS: TSH reflex Free T4 0.68 uIU/mL (0.32-4.0)
== END 2023-05-31 10:53 | disposition home or self-care (01) ==
LOC: HO.LAB 10:52
PROVIDERS: PCP Physician Assistant; Visit Provider Physician Assistant
DX: J45.30 Mild persistent asthma, uncomplicated (principal); E04.1 Nontoxic single thyroid nodule; I10 Essential (primary) hypertension; E78.2 Mixed hyperlipidemia
CPT/HCPCS: 36415; 80053; 80061; 82043; 82570; 84443; 85027

== ENCOUNTER 2023-09-14 09:00 | Outpatient (RCR) | payer OTHER, SELFPAY ==
--- NOTE | 2023-07-19 11:43 | MHC.PT.EP ---
[facility] [place] Office [place] Office [place] Office [address] Gracia Castro [address] [phone] F: [phone] F: [phone] F: [phone] F: [phone] Physical Therapy Plan of Care Date of Evaluation: 07/19/23 Date of Surgery: Diagnosis: SPINAL STENOSIS , LUMBAR, W/O NEUROGENIC CLAUDICATION THOT/ THORACOLUMB/LUMBOSACRAL INTERVERT DISC DISORDER Assessment: 48 YO FEMALE REF TO PT W 10-20 YR H/O THORACOLUMB PAIN, SOME RADIC SXS REPORTED. 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 SHE DENIES BOWEL/ BLADDER SIGNS/SXS. SKILLED PT IS INDICATED TO REDUCE PAIN AND MUSCLE TENSION, IMPROVE POSTURE AND BODY MECH, NORMALIZE TRUNK/HIP AROM AND LUMBOSACRAL STABILITY-> REDUCE LLI. THE Pt IS IN AGREEMENT W PT PLAN AND WILL ATTEND PT 2 x WK. 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 Manual therapy to restore motion and function. Therapeutic exercise to improve strength and flexibility. Neuromuscular re-education for posture and balance. Therapeutic activities to return to functional activities of daily living. Electronically signed by: YOLANDA VILLEDA,PT Please sign and return to therapist. Thank you for your referral.
--- NOTE | 2023-09-14 10:24 | MHC.PT.DC ---
[facility] [place] Office [place] Office [place] Office [address] Gracia Castro [address] [phone] F: [phone] F: [phone] F: [phone] F: [phone] Physical Therapy Discharge Report Diagnosis: SPINAL STENOSIS , LUMBAR, W/O NEUROGENIC CLAUDICATION THOT/ THORACOLUMB/LUMBOSACRAL INTERVERT DISC DISORDER Date of Surgery: Date of Evaluation: 07/19/23 Date of Discharge: 09/14/23 Treatments to Date: 9 Cancellations to Date: 0 No Shows to Date: 0 Discharge Status: Achieved Goals Improved Function Independent with HEP Patient Elected to Stop Discharge Summary: THE Pt BENEFITTED FROM PT TO ADDRESS HER THORACOLUMB PAIN, IMPROVE POSTURE AND SELF-CORRECT/ SX MGMT TECHN- SHE HAS IMPROVED QUALITY OF MVMT AND EFFICIENT GAIT. SHE HAS A HEP TO ADDRESS STRENGTH/ FLEXIB AND REDUCE FURTHER STRESS TO HER LB- HER OSWESTRY SCORE TODAY WAS 24/50 (30/50 AT EVAL). THE Pt HAS MET HER PT GOALS TO MAX POTENTIAL AT THIS TIME SHE REQUESTED DISCHARGE SHE IS LEAVING THIS AREA AND TRAVELING TO [place] FOR SOME TIME. Electronically signed by: YOLANDA VILLEDA,PT Please sign and return to therapist. Thank you for your referral.
== END 2023-09-14 10:25 | disposition home or self-care (01) ==
LOC: HO.PT 09:00
PROVIDERS: PCP Physician Assistant; Visit Provider Physician Assistant
DX: M51.9 Unspecified thoracic, thoracolumbar and lumbosacral intervertebral disc disorder (principal); M48.061 Spinal stenosis, lumbar region without neurogenic claudication
CPT/HCPCS: 97110; 97162